=== PATIENT | male | born 1960 | race Caucasian/White ===

== ENCOUNTER → 2019-02-25 | Outpatient (CLI) | payer BC ==
[~2019-02-25] MED LIST: REGADENOSON 0.4 MG/5 ML SYRINGE IV ONE
--- NOTE | 2019-02-25 13:06 | EST ---
EXERCISE STRESS DATE OF SERVICE: 02/25/2019 AGE: 58 SEX: Male HT: 5'10" WT: 250 pounds PROTOCOL: Lexiscan Cardiolite STAGE: DURATION OF EXERCISE: HEART RATE REST: 69 BLOOD PRESSURE REST: 164/82 MAXIMUM HEART RATE ACHIEVED: 90 MAXIMUM BLOOD PRESSURE: 166/78 85% MPHR: 100% MPHR: METS: INDICATIONS: Short of breath. CLINICAL INFORMATION: Lexiscan nuclear study was performed. Peak heart rate of 90 was achieved. Maximum blood pressure of 166/78 mmHg was noted. Resting EKG shows a normal sinus rhythm with normal NJ interval and QRS duration and normal ST-T waves. No ST-segment depression suggestive of ischemia is noted. The results of the nuclear study will follow. MMISRAL / IJN: [id number] /
--- NOTE | 2019-02-25 14:11 | NM ---
EXAMINATION TYPE: NM stress lexiscan cardiolite DATE OF EXAM: 02/25/2019 COMPARISON: NONE HISTORY: Hypertension TECHNIQUE: After the intravenous administration of 10 mCi Tc 99m Sestamibi - Cardiolite resting SPEC T images acquired 50 minutes post injection. The patient received 0.4mg Lexiscan, 25.7 mCi Tc 99m Sestamibi - Stress images obtained [address] injection FINDINGS: Review of stress and rest SPECT images demonstrates no distinct perfusion abnormality. Gated analysi s shows normal wall motion with an estimated left ventricular ejection fraction of 49 %. IMPRESSION: No scintigraphic evidence for reversible ischemia.
== END ==
LOC: RADNMMAIN 08:05
PROVIDERS: ATTEND Family Medicine
DX: I10 Essential (primary) hypertension (principal)
CPT/HCPCS: 93017; 78452; A9500; J2785

== ENCOUNTER → 2019-04-21 | Outpatient (CLI) | payer BC ==
[2019-04-21 08:32] LABS: African American GFR (CKD) >90 (>60 ml/min/1.73 sqM); Blood Urea Nitrogen 16 mg/dL (9-20)
--- NOTE | 2019-04-21 12:25 | XR ---
EXAMINATION TYPE: XR lumbar spine 2 or 3V DATE OF EXAM: 04/21/2019 CLINICAL HISTORY: Back pain TECHNIQUE: Frontal and lateral images of the lumbar spine are obtained. COMPARISON: 10/25/2013 FINDINGS: There are 5 lumbar type vertebral bodies identified. The lumbar spine shows satisfactory alignment without evidence of acute fracture or dislocation. Multilevel facet arthropathy is seen wit h intervertebral disc space narrowing and nearly bridging anterior osteophytes. Extensive atheroscler osis of the abdominal aorta. Degree of degenerative disc disease has advanced from the prior 2013. Ve rtebral body heights and disk space heights are within normal limits. The overlying soft tissue appe ars unremarkable. IMPRESSION: No acute fracture or malalignment is seen in the lumbar spine. Worsening now moderate mu ltilevel degenerative disc disease of the lumbar spine in comparison the prior 2013.
--- NOTE | 2019-04-21 19:44 | CT ---
EXAMINATION TYPE: CT lumbar spine w con DATE OF EXAM: 04/21/2019 COMPARISON: HISTORY: Low back pain CT DLP: 2200.3 mGycm CONTRAST: CT scan of the lumbar is performed with IV Contrast, patient injected with 100 mL of Isovue 300. TECHNIQUE: CT of the lumbar spine is performed on a spiral scan at 3 mm thick sections. Reconstructed images are performed in the coronal and sagittal planes. FINDINGS: T12-L1: No focal disc herniation or significant disc bulge is evident. No spinal canal stenosis or neural foraminal stenosis is present. L1-L2: Mild disc bulge is present with anterior thecal sac contact. No spinal canal stenosis or neura l foraminal stenosis is present. L2-L3: Facet hypertrophy is present with posterior lateral thecal sac compression. There is mild disc bulging with posterior longitudinal ligament calcification. This is contributing to the spinal canal stenosis through this level. Neural foramen are patent. L3-L4: Based disc bulge is present with mild anterior thecal sac compression. Facet hypertrophy has s ome posterior lateral thecal sac compression. Some canal narrowing is present to this level. There is moderate left foraminal narrowing. L4-L5: Mild disc bulge is present with mild anterior thecal sac contact. Marked facet hypertrophy has significant posterior lateral thecal sac compression contributing to spinal canal stenosis through t his level. Bilateral foraminal stenosis is present. L5-S1: Mild disc bulge has anterior thecal sac contact. No spinal canal stenosis or neural foraminal stenosis is present. Vertebral alignment appears normal. There may be some minimal retrolisthesis of L5 on S1. IMPRESSION: 1. Spinal canal stenosis predominantly due to facet hypertrophy present at L4-5 and to a lesser degre e L2-3. Some mild disc bulging at these levels contributes to the stenosis. 2. Multilevel mild disc bulges with anterior thecal sac contact. This has milder canal narrowing with out stenosis at L3-4. 3. Consider MRI without contrast for additional evaluation.
== END | disposition home or self-care (01) ==
LOC: RADCTMAIN 07:52
PROVIDERS: ATTEND Family Medicine
DX: M48.061 Spinal stenosis, lumbar region without neurogenic claudication (principal); M51.16 Intervertebral disc disorders with radiculopathy, lumbar region
CPT/HCPCS: 82565; 84520; 72100; 72132; 36415; Q9967

== ENCOUNTER → 2020-10-17 | Outpatient (CLI) | payer BC ==
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
[2020-10-17 11:52] VITALS: BP 169/98; PULSE 77; RESP 18; TEMP 98.7
== END | disposition home or self-care (01) ==
LOC: PNWHC3 10:55
PROVIDERS: ATTEND Anesthesiology
DX: M47.26 Other spondylosis with radiculopathy, lumbar region (principal); E11.9 Type 2 diabetes mellitus without complications; M48.061 Spinal stenosis, lumbar region without neurogenic claudication; E66.9 Obesity, unspecified; F17.200 Nicotine dependence, unspecified, uncomplicated; Z88.5 Allergy status to narcotic agent; Z88.8 Allergy status to other drugs, medicaments and biological substances; Z79.84 Long term (current) use of oral hypoglycemic drugs; Z79.899 Other long term (current) drug therapy; Z79.891 Long term (current) use of opiate analgesic
CPT/HCPCS: 99211

== ENCOUNTER → 2020-10-22 | Outpatient (CLI) | payer BC ==
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
== END | disposition home or self-care (01) ==
CPT/HCPCS: 99211

== ENCOUNTER → 2020-11-05 | Outpatient (CLI) | payer BC ==
[2020-11-05 09:53] LABS: HCT 54.5 % (39.0-53.0); Hypochromasia Slight; MCH 29.8 pg (25.0-35.0); MCHC 31.3 g/dL (31.0-37.0); MCV 95.4 fL (80.0-100.0); Mean Platelet Volume 7.8; Platelet Count 178 k/uL (150-450); RBC 5.71 m/uL (4.30-5.90); RDW 13.6 % (11.5-15.5); WBC 10.4 k/uL (3.8-10.6)
[2020-11-05 16:31] LABS: African American GFR (CKD) 106.5 (60.0-200.0); Albumin 4.6 g/dL (3.80-4.90); Anion Gap 12.6 mmol/L (4.00-12.00); BUN/Creat Ratio 16.67 Ratio (12.00-20.00); Calcium 8.9 mg/dL (8.7-10.3); Carbon Dioxide 26.4 mmol/L (21.6-31.8); Globulin 2.3 g/dL (1.6-3.3); Non-African American GFR(CKD) 91.9 (60.0-200.0); Potassium 4.3 mmol/L (3.5-5.5); Total Bilirubin 1.1 mg/dL (0.3-1.2); Total Protein 6.9 g/dL (6.2-8.2)
[2020-11-05 16:40] LABS: Folate, Serum 9.2 ng/mL
[2020-11-05 17:59] LABS: Hemoglobin A1C 7.1 % (4.0-6.0)
== END | disposition home or self-care (01) ==
LOC: LABWHC1 08:53
PROVIDERS: ATTEND Surgery
DX: E55.9 Vitamin D deficiency, unspecified (principal); E88.81 Metabolic syndrome and other insulin resistance; E66.01 Morbid (severe) obesity due to excess calories
CPT/HCPCS: 36415; 80053; 82306; 82607; 82746; 83036; 84425; 85027; 93005

== ENCOUNTER 2020-11-09 12:02 | Day surgery (SDC) | payer BC ==
[2020-11-07 15:42] VITALS: BMI 34.2
[~2020-11-09 12:02] MED LIST changes: +LACTATED RINGERS 1,000 ML IV SCH; -REGADENOSON 0.4 MG/5 ML SYRINGE IV ONE
[2020-11-09] MEDS ORDERED: LIDOCAINE 1% (10MG/ML) FOR IV START INTRADERMA ONE (12:43)
[2020-11-09 12:53] LABS: Glucose,Whole Blood 99 mg/dL (75-99)
[2020-11-09 12:56] VITALS: TEMP 97.1
[2020-11-09] MEDS ORDERED: MIDAZOLAM 2 MG/2 ML VIAL ONE (13:04)
[2020-11-09] MEDS ORDERED: IOPAMIDOL M200 10 ML VIAL ONE (13:04)
[2020-11-09] MEDS ORDERED: LIDOCAINE 1% INJ 10MG/ML (20 ML MDV) ONE (13:04)
[2020-11-09] MEDS ORDERED: methylPREDNISolone ACETATE 40 MG/ML 1 ML VIAL ONE (13:04)
[2020-11-09] MEDS ORDERED: fentaNYL (PF) 50 MCG/ML 2 ML AMP ONE (13:04)
--- NOTE | 2020-11-09 13:37 | P.PCN ---
Date of Procedure: 11/09/20 Procedure(s) Performed: PREOPERATIVE DIAGNOSIS: 1-Lumbar radiculopathy. 2-Lumbar spinal stenosis. 3-Lumbar spondylosis with lumbar facet arthropathy POSTOPERATIVE DIAGNOSIS: same as preoperative diagnosis . PROCEDURE: 1. Caudal epidural steroid injection under fluoroscopic guidance. (Fluoroscopy images available in the radiology department ) 2. Caudal epidurogram (Attempted lumbar epidural steroid injection at L4 5, and L5-S1, left successful when the procedure was converted to caudal epidural steroid injections ) ANESTHESIA: Local with 1% lidocaine; 5ml for subcutaneous infiltrations and IV versed 2 mg ,and fentanyl 100 mcg EBL: None. PROCEDURE INDICATION: The patient with neuropathic pain radiating distally returns for caudal epidural steroid injection. PROCEDURE DESCRIPTION: The patient was seen and identified in the preoperative area. Risks, benefits, complications, and alternatives were discussed with the patient. The patient agreed to proceed with the procedure and signed the consent. IV was started, and vital signs were stable. Patient was taken to the OR and time out was completed. The patient was placed in the prone position on procedure table and a pillow was placed under the abdomen to reduce lumbar lordosis. The lumbosacral area was prepped and draped in the usual sterile fashion. Critical pause was taken. Vital signs were closely monitored during the procedure. multiple attempts done to access the L4 5 level interlaminar space was not successful, using 18-gauge 6 inch Tuohy needle, I was not able to access the epidural space, at L4 5 or L5-S1 levels, then the procedure was converted to caudal epidural steroid injection Using lateral fluoroscopy the anterior-posterior plates of the sacrum were identified and the skin and deeper tissues corresponding into sacrococcygeal ligament were anesthetized using approximately 3 mL of 1% lidocaine. Then under fluoroscopy, a 3-1/2-inch 20-gauge Tuohy epidural needle was guided through the sacrococcygeal ligament, and into the epidural space. After negative aspiration, a 2 mL of Isovue 200 contrast dye was injected with excellent epidurogram. Again after negative aspiration for CSF, blood, and with no paresthesias, then Depo-Medrol 40mg, 2ml of 1% preservative free Lidocaine with 6 ml of preservative free normal saline(total of 10ml)solution was injected with washout of epidurogram. Needle was withdrawn intact. Skin was cleansed, and bandage was applied. COMPLICATIONS: None DISPOSITION / PLANS: The patient was placed in a supine position and transferred to the recovery area in a stable condition for observation and was discharged from the recovery room after meeting discharge criteria. Home discharge instructions given to the patient by the staff. The patient was reexamined prior to discharge. The patient will schedule a follow up in the clinic in 2-4 weeks.
[2020-11-09] MEDS ORDERED: IV FLUID CONTINUATION 550 ML IV ONE (13:40)
--- NOTE | 2020-11-09 13:43 | FL ---
EXAMINATION TYPE: FL guided pain mgmt statistic DATE OF EXAM: 11/09/2020 HISTORY: Pain 25sec fluoro time,2 images scanned
[2020-11-09 14:06] VITALS: BP 161/71; PULSE 67; RESP 20
== END 2020-11-09 14:30 | disposition home or self-care (01) ==
LOC: ORPAIN 12:02
PROVIDERS: ATTEND Specialist
DX: M47.26 Other spondylosis with radiculopathy, lumbar region (principal); M48.061 Spinal stenosis, lumbar region without neurogenic claudication; M51.16 Intervertebral disc disorders with radiculopathy, lumbar region; E11.9 Type 2 diabetes mellitus without complications; Z79.82 Long term (current) use of aspirin
CPT/HCPCS: 62323; J2250; J1030; J2001; J3010; Q9966; 99152

== ENCOUNTER 2020-11-22 06:49 | Day surgery (SDC) | payer BC ==
[2020-11-20 10:16] VITALS: BMI 49.4
[2020-11-22 07:35] VITALS: TEMP 98.7
[2020-11-22 07:50] LABS: Glucose,Whole Blood 128 mg/dL (75-99)
[2020-11-22] MEDS ORDERED: PROPOFOL 10 MG/ML 20 ML VIAL IV ONE (08:01)
[2020-11-22] MEDS ORDERED: LIDOCAINE 1% INJ 10MG/ML (20 ML MDV) ONE (08:01)
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
--- NOTE | 2020-11-22 08:20 | P.OP ---
Date of Procedure: 11/22/20 Preoperative Diagnosis: Morbid obesity, BMI 50 GERD Postoperative Diagnosis: Morbid obesity BMI 50 Mild antral gastritis Procedure(s) Performed: EGD Anesthesia: MAC Surgeon: Mayur Merida Pathology: other Condition: stable Disposition: PACU Description of Procedure: The patient's placed on the endoscopy table in the lateral he received IV sedation. The gastric scope was placed in the patient's oropharynx passed in the esophagus and stomach. Scope some placed in the pylorus. The first and second portion of duodenum appeared normal. The scope was then brought back the first and second portion duodenum appeared normal. In the antrum were some mild inflammation. A biopsies performed. Scope was retroflexed and the remainder stomach appeared normal. The GE junction was at 40 cm. There is no evidence of hiatal hernia. The distal esophagus appeared normal. The proximal esophagus appeared normal. Scope was then brought back and withdrawn from patient.
[2020-11-22 08:31] VITALS: BP 133/69; PULSE 71; RESP 20
== END 2020-11-22 08:56 | disposition home or self-care (01) ==
LOC: ORWHC2ENDO 06:49
PROVIDERS: ATTEND Surgery
DX: K31.9 Disease of stomach and duodenum, unspecified (principal); K21.9 Gastro-esophageal reflux disease without esophagitis; E66.01 Morbid (severe) obesity due to excess calories; Z68.43 Body mass index [BMI] 50.0-59.9, adult; E11.9 Type 2 diabetes mellitus without complications; E78.5 Hyperlipidemia, unspecified; I10 Essential (primary) hypertension; M19.90 Unspecified osteoarthritis, unspecified site; F17.210 Nicotine dependence, cigarettes, uncomplicated; Z87.01 Personal history of pneumonia (recurrent); N42.9 Disorder of prostate, unspecified; Z87.19 Personal history of other diseases of the digestive system; Z98.890 Other specified postprocedural states; Q44.7 Other congenital malformations of liver; Z87.898 Personal history of other specified conditions; Z80.42 Family history of malignant neoplasm of prostate; Z80.49 Family history of malignant neoplasm of other genital organs; Z79.84 Long term (current) use of oral hypoglycemic drugs; Z79.1 Long term (current) use of non-steroidal anti-inflammatories (NSAID); Z79.82 Long term (current) use of aspirin; Z79.899 Other long term (current) drug therapy; Z88.8 Allergy status to other drugs, medicaments and biological substances
CPT/HCPCS: 88305; 43239; J2001; J2704

== ENCOUNTER → 2020-11-26 | Outpatient (CLI) | payer BC ==
[2020-11-26 13:13] VITALS: BMI 51.2
== END | disposition home or self-care (01) ==
LOC: BARWHC3 08:48
PROVIDERS: ATTEND Surgery
DX: E66.01 Morbid (severe) obesity due to excess calories (principal); Z71.3 Dietary counseling and surveillance; Z68.43 Body mass index [BMI] 50.0-59.9, adult
CPT/HCPCS: 97804

== ENCOUNTER → 2020-12-10 | Outpatient (CLI) | payer BC ==
[2020-12-10 13:37] VITALS: BP 170/105; PULSE 93; RESP 18; TEMP 99; BMI 50.8
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
== END ==
LOC: BARWHC3 13:02
PROVIDERS: ATTEND Surgery
DX: E66.01 Morbid (severe) obesity due to excess calories (principal); E11.9 Type 2 diabetes mellitus without complications; M19.90 Unspecified osteoarthritis, unspecified site; I10 Essential (primary) hypertension; F17.210 Nicotine dependence, cigarettes, uncomplicated; Z68.43 Body mass index [BMI] 50.0-59.9, adult; Z98.84 Bariatric surgery status; Z79.82 Long term (current) use of aspirin; Z79.4 Long term (current) use of insulin
CPT/HCPCS: 99211

== ENCOUNTER → 2020-12-10 | Outpatient (CLI) | payer BC ==
[2020-12-10 14:41] LABS: Basophils # (A) 0.1 k/uL (0-0.2); Basophils % (A) 1 %; Eosinophils # (A) 0.3 k/uL (0-0.7); Eosinophils % (A) 3 %; HGB 16.6 gm/dL (13.0-17.5); Lymphocytes # (A) 2.4 k/uL (1.0-4.8); Lymphocytes % (A) 20 %; MCH 30.3 pg (25.0-35.0); MCHC 31.9 g/dL (31.0-37.0); Mean Platelet Volume 7.6; Monocytes # (A) 0.8 k/uL (0-1.0); Monocytes % (A) 6 %; Neutrophils # (A) 8.4 k/uL (1.3-7.7); Neutrophils % (A) 70 %; Platelet Count 184 k/uL (150-450); RBC 5.48 m/uL (4.30-5.90); RDW 13.8 % (11.5-15.5); WBC 12.1 k/uL (3.8-10.6)
[2020-12-10 14:48] LABS: ALT 28 U/L (4-49); AST 29 U/L (17-59); African American GFR (CKD) >90 (>60 ml/min/1.73 sqM); Albumin 4.3 g/dL (3.5-5.0); Alkaline Phosphatase 91 U/L (38-126); Anion Gap 9 mmol/L; Blood Urea Nitrogen 12 mg/dL (9-20); Calcium 9.3 mg/dL (8.4-10.2); Carbon Dioxide 32 mmol/L (22-30); Chloride 103 mmol/L (98-107); Glucose 106 mg/dL (74-99); Non-African American GFR(CKD) 90 (>60 ml/min/1.73 sqM); Sodium 144 mmol/L (137-145); Total Bilirubin 0.8 mg/dL (0.2-1.3); Total Protein 7.4 g/dL (6.3-8.2)
== END | disposition home or self-care (01) ==
LOC: LABPAT 13:46
PROVIDERS: ATTEND Surgery
DX: Z01.812 Encounter for preprocedural laboratory examination (principal)
CPT/HCPCS: 36415; 80053; 85025

== ENCOUNTER 2020-12-24 07:30 | Inpatient (IN) | payer BC, MEDICARE ==
[~2020-12-24 07:30] MED LIST changes: +DEXAMETHASONE SOD PHOSPHATE 4 MG/ML 1 ML VIAL IV ONE; +ENOXAPARIN 40 MG/0.4 ML SYRINGE SQ PRN; -LACTATED RINGERS 1,000 ML IV SCH; +MIDAZOLAM 2 MG/2 ML VIAL IV PRN; +ONDANSETRON 4 MG/2 ML VIAL IVP ONE; +SCOPOLAMINE 1.5MG/72HR PATCH TRANSDERM ONE; +ceFAZolin 3 GM in SODIUM CHLORIDE 0.9% 100 ML IVPB PRN
[2020-12-24] MEDS: LACTATED RINGERS 1,000 ML IV SCH (10:06)
[2020-12-24 10:40] LABS: Glucose,Whole Blood 92 mg/dL (75-99)
[2020-12-24] MEDS ORDERED: MIDAZOLAM 2 MG/2 ML VIAL IVP ONE (11:00)
[2020-12-24] MEDS ORDERED: fentaNYL (PF) 50 MCG/ML 2 ML AMP IVP ONE (11:00)
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
[2020-12-24] MEDS ORDERED: NEOSTIGMINE 1 MG/ML 10 ML VIAL ONE (12:17)
[2020-12-24] MEDS ORDERED: PHENYLEPHRINE-0.9% NACL SYG 1,000 MCG/10 ML SYRINGE ONE (12:17)
[2020-12-24] MEDS ORDERED: KETOROLAC 15 MG/ML 1 ML VIAL ONE (12:17)
[2020-12-24] MEDS ORDERED: PROPOFOL 10 MG/ML 20 ML VIAL IV ONE (12:17)
[2020-12-24] MEDS ORDERED: SUCCINYLCHOLINE CHLORIDE VIAL 200 MG/10 ML VIAL IV ONE (12:17)
[2020-12-24] MEDS ORDERED: GLYCOPYRROLATE 0.2 MG/ML 2 ML VIAL ONE (12:17)
[2020-12-24] MEDS ORDERED: LIDOCAINE 1% INJ 10MG/ML (20 ML MDV) ONE (12:17)
[2020-12-24] MEDS ORDERED: KETAMINE 10 MG/ML 20 ML VIAL ONE (12:17)
[2020-12-24] MEDS ORDERED: ROCURONIUM 10 MG/ML (5 ML VIAL) IV ONE (12:17)
[2020-12-24] MEDS ORDERED: SODIUM CHLORIDE 0.9% (PF) 10 ML VIAL ONE (12:17)
[2020-12-24] MEDS ORDERED: diphenhydrAMINE 50 MG/ML 1 ML VIAL ONE (12:17)
[2020-12-24] MEDS ORDERED: ACETAMINOPHEN IV (For NPO) 1,000 MG/100 ML VIAL ONE (12:17)
[2020-12-24] MEDS ORDERED: ROPIVACAINE 5 MG/ML 30 ML VIAL ONE (12:17)
[2020-12-24] MEDS ORDERED: MIDAZOLAM 2 MG/2 ML VIAL ONE (12:17)
--- NOTE | 2020-12-24 12:28 | P.ANPRN ---
Procedure Note - Anesthesia - Nerve Block Performed Bilateral Erector Spinae Single Time Out Performed: Yes Date of Procedure: 12/24/20 Procedure Start Time: 10:59 Procedure Stop Time: 11:07 Location of Patient: PreOp Indication: Requested by Surgeon Specifically requested for management of pain by DrDoroteo: Mayur Merida Sedation Type: Sedate with meaningful contact maintained Preparation: Sterile Prep Position: Prone Needle Types: Pajunk Needle Gauge: 21 Ultrasound used to visualize needle placement: Yes Ultrasound used to observe medication spread: Yes Injectate: Other (see comment) (ropivacaine 0.25% 30 ml plus Dexamethasone 4 mg per side) Blood Aspirated: No Pain Paresthesia on Injection Noted: No Resistance on Injection: Normal Image Stored and Saved: Yes Events: Uneventful and Well Tolerated
[2020-12-24] MEDS ORDERED: BUPIVACAIN-EPI 0.5%-1:200,000 30 ML VIAL SQ ONE (13:15)
[2020-12-24] MEDS ORDERED: LACTATED RINGERS 1,000 ML IV ONE (13:30)
[2020-12-24] MEDS ORDERED: SIMETHICONE 40 MG/0.6 ML DROPS 2,000 MG/30 ML BOTTLE PO PRN (14:31)
[2020-12-24] MEDS ORDERED: diphenhydrAMINE 50 MG/ML 1 ML VIAL IVP PRN (14:31)
[2020-12-24] MEDS ORDERED: ONDANSETRON 4 MG/2 ML VIAL IVP PRN (14:31)
[2020-12-24] MEDS ORDERED: HYOSCYAMINE ORAL DROPS 1.875 MG/15 ML BOTTLE PO PRN (14:31)
[2020-12-24] MEDS ORDERED: NALOXONE 0.4 MG/ML 1 ML VIAL IV PRN (14:31)
[2020-12-24 14:35] LABS: Glucose,Whole Blood 164 mg/dL (75-99)
[2020-12-24] MEDS: HYDROmorphone 0.5 MG/0.5 ML SYRINGE IVP PRN ×3 (15:00→16:14)
[2020-12-24] MEDS ORDERED: diphenhydrAMINE 50 MG/ML 1 ML VIAL IVP ONE (15:03)
[2020-12-24] MEDS ORDERED: KETOROLAC 15 MG/ML 1 ML VIAL IVP ONE (15:29)
--- NOTE | 2020-12-24 15:53 | P.OP ---
Date of Procedure: 12/24/20 Preoperative Diagnosis: morbid obesity, BMI 46 Postoperative Diagnosis: morbid obesity, BMI 46 Extensive intraperitoneal adhesions Incisional hernia Procedure(s) Performed: laparoscopic lysis of adhesion. Sleeve gastrectomy Repair of incisional hernia Anesthesia: RICHARD Surgeon: Mayur Merida Estimated Blood Loss (ml): 100 Pathology: other (gastric sleeve) Condition: stable Disposition: PACU Description of Procedure: patient's placed on the operative table in the supine position. He received general anesthesia. His abdomen was prepped and draped in usual sterile fashion. The patient had been placed in dorsal lithotomy position. The patient had a large midline scar. There is evidence of incisional hernia. Using a Veress needle in the left upper quadrant peritoneal cavity was entered and then abdomen was insufflated. After adequate insufflation a 5 mm laparoscopic trocar is placed in the left lateral position under direct visualization. The Cavity was entered in the abdomen was insufflated. There were extensive adhesions noted along the midline scar. A second 5 mm trocar was placed in the left epigastric position. Attempts were made to lyse adhesions however this was very difficult. At this point decided to convert the procedure to an open procedure. The trochars withdrawn. The skin was incised in the midline. The area was entered through the midline. There was a small incisional hernia located along the lower portion of the scar. Approximately 30 minutes operative time used to lyse adhesions. And then the stomach was mobilized. The greater curvature stomach was then the mobilized by dividing the omentum off of the greater curvature. The patient had a previous colectomy with there was significant scarring left upper quadrant. The stomach was dissected away from from the lateral abdominal wall. Once it was fully mobilized. The 40-Indonesian bougie dilator was placed in the patient's stomach via the oropharynx and into the esophagus and stomach. And then the sleeve gastrectomy was performed using the GI stapler. The abdomen was irrigated there is no bleeding seen. The stomach was insufflated with methylene blue normal saline. No extravasation was seen. The fascia was closed with looped #1 PDS suture. The fascia of the incisional hernia was repaired using fascial closure. Skin was closed gabriel. Patient top she will was sent to recovery room in stable condition.
[2020-12-24] MEDS ORDERED: IPRATROPIUM-ALBUTEROL 3 ML NEB INHALATION PRN (16:50)
[2020-12-24] MEDS: ALBUTEROL NEBULIZED 2.5 MG/3 ML INHALATION SCH ×2 (18:00→20:59)
[2020-12-24] MEDS: KETOROLAC 15 MG/ML 1 ML VIAL IVP SCH ×2 (18:02→23:07)
[2020-12-24] MEDS: NICOTINE 14MG/24HR PATCH TRANSDERM SCH (18:48)
--- NOTE | 2020-12-24 19:49 | CONS ---
CONSULTATION This is a 60-year-old white male, status post lysis of adhesions, gastric sleeve repair, with a BMI of 46, morbidly obese. He has a history of diabetes mellitus, hypertension acceleration, dyslipidemia, osteoarthritis, chronic nicotine addiction, COPD, history of some spinal stenosis, history of pancreatitis, past surgical history of orthopedic surgery ORIF of upper left arm, surgery for compartment syndrome, lower left arm, tear of the diaphragm, chest tube for pneumonia. He is a current everyday smoker. FAMILY HISTORY: Father with cancer of the prostate. Mother with cancer of the uterus. MEDICATIONS: 1. Lasix 40 daily. 2. Potassium chloride 20 mEq daily. 3. Zoloft 100 daily. 4. Norvasc 10 mg daily. 5. Tenormin 100 b.i.d. 6. Zestril for 20 mg b.i.d. 7. Metformin 250 daily. 8. Aspirin 81 daily. 9. Lipitor 20 daily. 10.Flexeril 5 mg p.o. t.i.d. 11.Motrin 800 daily. 12.Flomax 0.4 mg daily. 13.Tramadol 50 mg daily. 14.Vitamin D2 50,000 units once a week. 15.Meloxicam 7.5 b.i.d. 16.Tolterodine 4 mg daily. 17.Trulicity 1.5 once a week. 18.Calcium citrate 250 mg daily. ALLERGIES: ZYBAN. PHYSICAL EXAMINATION: Temperature is 97.3, pulse 60s to 70s, respiratory rate 16 to 18, blood pressure 150/73, oxygen saturation 92%. GENERAL APPEARANCE: Well-developed, well-nourished. No acute distress. HEENT: Pupils equal, round, reactive. Lungs are clear. GI: Soft, distended. Obesity. As mentioned, he is status post gastric sleeve. ASSESSMENT: 1. Hypertension. 2. Diabetes. 3. Morbid obesity. Continue home medicines. Will monitor his oral intake and possibly restart blood pressure medicines, depending on his vital signs. 1. History of chronic obstructive pulmonary disease. We may have to use updraft treatments postoperatively on him and monitor his breathing. MMODL / IJN: [id number] /
[2020-12-24] MEDS: atenoloL 50 MG TAB PO SCH (20:32)
[2020-12-24] MEDS: ATORVASTATIN 20 MG TAB PO SCH (20:32)
[2020-12-24] MEDS: HYDROmorphone 1 MG/ML 1 ML SYRINGE IVP PRN (20:37)
[2020-12-24 20:41] LABS: Glucose,Whole Blood 123 mg/dL (75-99)
[2020-12-24] MEDS: 0.9% NACL WITH KCL 20 MEQ/L 1,000 ML IV SCH (21:17)
[2020-12-25] MEDS: 0.9% NACL WITH KCL 20 MEQ/L 1,000 ML IV SCH ×2 (00:38→03:44)
[2020-12-25] MEDS: HYDROmorphone 1 MG/ML 1 ML SYRINGE IVP PRN ×4 (04:54→22:06)
[2020-12-25] MEDS: LACTATED RINGERS 1,000 ML IV SCH (05:45)
[2020-12-25] MEDS: KETOROLAC 15 MG/ML 1 ML VIAL IVP SCH ×4 (05:46→23:33)
[2020-12-25 06:54] LABS: Glucose,Whole Blood 107 mg/dL (75-99)
[2020-12-25] MEDS ORDERED: 1: MVI, ADULT NO.4 WITH VIT K 10 ML, THIAMINE 100 MG, FOLIC ACID 1 MG, POTASSIUM CHLORID IV SCH ×6 (08:00)
[2020-12-25] MEDS: ALBUTEROL NEBULIZED 2.5 MG/3 ML INHALATION SCH ×4 (09:18→20:19)
[2020-12-25] MEDS: atenoloL 50 MG TAB PO SCH ×2 (09:27→20:26)
[2020-12-25] MEDS: NICOTINE 14MG/24HR PATCH TRANSDERM SCH (09:28)
[2020-12-25] MEDS: ENOXAPARIN 40 MG/0.4 ML SYRINGE SQ SCH (09:28)
[2020-12-25] MEDS: PANTOPRAZOLE 40 MG/10 ML VIAL IV SCH ×2 (09:28→09:36)
[2020-12-25 10:56] LABS: Basophils # (A) 0.02 X 10*3/uL (0.00-0.10); Basophils % (A) 0.1 %; Eosinophils # (A) 0.01 X 10*3/uL (0.04-0.35); Eosinophils % (A) 0.1 %; HGB 14.9 g/dL (13.0-17.0); Lymphocytes # (A) 1.24 X 10*3/uL (0.90-5.00); Lymphocytes % (A) 7.7 %; MCH 30.1 pg (27.0-32.0); MCHC 30.4 g/dL (32.0-37.0); Mean Platelet Volume 11.2 fL (9.5-12.2); Monocytes # (A) 1.36 X 10*3/uL (0.20-1.00); Monocytes % (A) 8.4 %; Neutrophils # (A) 13.46 X 10*3/uL (1.80-7.70); Neutrophils % (A) 83.2 %; Platelet Count 209 X 10*3/uL (140-440); RBC 4.95 X 10*6/uL (4.40-5.60); RDW 14.1 % (11.5-14.5); WBC 16.17 X 10*3/uL (4.50-10.00)
[2020-12-25 11:29] LABS: African American GFR (CKD) 106.5 (60.0-200.0); Anion Gap 8.7 mmol/L (4.00-12.00); Calcium 8.6 mg/dL (8.7-10.3); Carbon Dioxide 24.3 mmol/L (21.6-31.8); Magnesium 1.9 mg/dL (1.5-2.4); Non-African American GFR(CKD) 91.9 (60.0-200.0); Phosphorus 4.1 mg/dL (2.4-5.1); Potassium 5.5 mmol/L (3.5-5.5)
[2020-12-25 11:35] LABS: Glucose,Whole Blood 101 mg/dL (75-99)
--- NOTE | 2020-12-25 12:33 | FL ---
EXAMINATION TYPE: FL UGI DATE OF EXAM: 12/25/2020 COMPARISON: None HISTORY: Post gastric sleeve and LAP-BAND removal TECHNIQUE: Fluoroscopy time: 0.4 minutes Images: 41 A single contrast UGI study is performed. FINDINGS: Contrast passes from the distal esophagus through the gastric sleeve with mild hesitancy. N o extravasation of contrast is evident. No free air is noted during this examination. Overhead radiographs were obtained which are unremarkable. IMPRESSIONS: 1. Mild hesitancy through the gastric sleeve. No extravasation.
[2020-12-25] MEDS: TAMSULOSIN 0.4 MG CAP.ER.24H PO SCH (12:40)
--- NOTE | 2020-12-25 13:34 | P.PN ---
Subjective Progress Note Date: 12/25/20 CHIEF COMPLAINT: Morbid obesity HISTORY OF PRESENT ILLNESS: Patient is status post laparoscopic lysis of adhesions, sleep gastrectomy, repair of incisional hernia. Patient has been up and walking. He is currently on 6 L of oxygen. He was having nausea earlier but this has improved. He denies passing gas or bowel movement. There were concerns initially about some urinary retention however patient has been able to void his Flomax is being restarted. Nursing staff is checking postvoid residuals. Upper GI had shown mild hesitancy through gastric sleeve. No extravasation. Afebrile. WBC 16.17 Hgb 14.9 potassium is 5.5 creatinine 0.9 magnesium 1.9 PHYSICAL EXAM: VITAL SIGNS: Reviewed. GENERAL: Well-developed in no acute distress. HEENT: No sclera icterus. Extraocular movements grossly intact. Moist buccal mucosa. Head is atraumatic, normocephalic. ABDOMEN: Soft. Nondistended. Nontender. NEUROLOGIC: Alert and oriented. Cranial nerves II through XII grossly intact. ASSESSMENT: 1. Morbid obesity, BMI 46, extensive intraperitoneal adhesions, incisional hernia status post laparoscopic lysis of adhesions, sleeve gastrectomy and repair of incisional hernia PLAN: -Patient can start bariatric clear liquid diet -Encouraged patient to use incentive spirometer and to ambulate -We'll remove potassium from the multivitamin IV fluids due to potassium of 5.5 -Continue pain medication as needed -Add Flomax -Check bladder scans and monitor for any urinary retention -GI prophylaxis Protonix and DVT prophylaxis Lovenox Physician Legal Associate note has been reviewed by physician. Signing provider agrees with the documented findings, assessment, and plan of care. Objective - Vital Signs Vital signs: Vital Signs Temp 97.6 F 12/25/20 07:40 Pulse 68 12/25/20 12:35 Resp 18 12/25/20 07:40 BP 98/59 12/25/20 07:40 Pulse Ox 92 L 12/25/20 12:27 Intake & Output 12/24/20 12/25/20 12/25/20 18:59 06:59 18:59 Intake Total 800 10 Output Total 25 650 Balance 775 -640 Weight 142.1 kg Intake: IV 800 Oral 10 Output: Urine 650 Estimated Blood Loss 25 Other: # Voids 1 - Labs CBC & Chem 7: 12/25/20 06:30 12/25/20 06:30 Labs: Abnormal Lab Results - Last 24 Hours (Table) 12/24/20 12/24/20 12/25/20 Range/Units 14:32 20:40 06:30 WBC 16.17 H (4.50-10.00) X 10*3/uL MCV 99.0 H (80.0-97.0) fL MCHC 30.4 L (32.0-37.0) g/dL Immature Gran # 0.08 H (0.00-0.04) X 10*3/uL Neutrophils # 13.46 H (1.80-7.70) X 10*3/uL Monocytes # 1.36 H (0.20-1.00) X 10*3/uL Eosinophils # 0.01 L (0.04-0.35) X 10*3/uL POC Glucose (mg/dL) 164 H 123 H (75-99) mg/dL Calcium (8.7-10.3) mg/dL 12/25/20 12/25/20 12/25/20 Range/Units 06:30 06:52 11:30 WBC (4.50-10.00) X 10*3/uL MCV (80.0-97.0) fL MCHC (32.0-37.0) g/dL Immature Gran # (0.00-0.04) X 10*3/uL Neutrophils # (1.80-7.70) X 10*3/uL Monocytes # (0.20-1.00) X 10*3/uL Eosinophils # (0.04-0.35) X 10*3/uL POC Glucose (mg/dL) 107 H 101 H (75-99) mg/dL Calcium 8.6 L (8.7-10.3) mg/dL
[2020-12-25 13:48] VITALS: BMI 46.3
[2020-12-25] MEDS: 1: MVI, ADULT NO.4 WITH VIT K 10 ML, THIAMINE 100 MG, FOLIC ACID 1 MG in SODIUM CHLORIDE IV SCH ×4 (14:42)
[2020-12-25 16:43] LABS: Glucose,Whole Blood 98 mg/dL (75-99)
--- NOTE | 2020-12-25 19:42 | PN ---
PROGRESS NOTE This patient is status post open gastric sleeve. He is sitting up in a chair. He says he is breathing better. He is 92%, still on 6 L, temperature 98.4, pulse 70s to 80s, respiratory rate 16-18. CARDIOVASCULAR: S1, S2. LUNGS: Scattered rhonchi and wheeze. HEMATOLOGY: Negative Homans. GI: Incision apparently is intact. ASSESSMENT: 1. Hypertension. 2. Diabetes. 3. Asthma/chronic obstructive pulmonary disease. On 6 L currently. Try to wean his oxygen down. Ambulate him. Advanced his diet as tolerated. Prognosis is guarded. Continue current treatments. MMODL / IJN: [id number] /
[2020-12-25 20:15] LABS: Glucose,Whole Blood 92 mg/dL (75-99)
[2020-12-25] MEDS: ATORVASTATIN 20 MG TAB PO SCH (20:26)
[2020-12-26] MEDS: 1: MVI, ADULT NO.4 WITH VIT K 10 ML, THIAMINE 100 MG, FOLIC ACID 1 MG in SODIUM CHLORIDE IV SCH ×8 (01:01→10:54)
[2020-12-26] MEDS: HYDROmorphone 1 MG/ML 1 ML SYRINGE IVP PRN ×4 (03:18→19:37)
[2020-12-26] MEDS: KETOROLAC 15 MG/ML 1 ML VIAL IVP SCH ×2 (05:25→11:18)
[2020-12-26] MEDS: LACTATED RINGERS 1,000 ML IV SCH (05:29)
[2020-12-26 06:57] LABS: Glucose,Whole Blood 98 mg/dL (75-99)
[2020-12-26 08:16] LABS: Basophils # (A) 0.1 k/uL (0-0.2); Basophils % (A) 0 %; Eosinophils % (A) 0 %; HCT 44.2 % (39.0-53.0); HGB 13.7 gm/dL (13.0-17.5); Hypochromasia Moderate; Lymphocytes # (A) 1.8 k/uL (1.0-4.8); Lymphocytes % (A) 16 %; MCH 30.5 pg (25.0-35.0); MCV 98.3 fL (80.0-100.0); Mean Platelet Volume 8.1; Monocytes # (A) 0.7 k/uL (0-1.0); Monocytes % (A) 6 %; Neutrophils # (A) 8.5 k/uL (1.3-7.7); Neutrophils % (A) 76 %; Platelet Count 181 k/uL (150-450); RBC 4.49 m/uL (4.30-5.90); RDW 13.9 % (11.5-15.5); WBC 11.2 k/uL (3.8-10.6)
[2020-12-26 08:19] LABS: African American GFR (CKD) >90 (>60 ml/min/1.73 sqM); Anion Gap 4 mmol/L; Blood Urea Nitrogen 22 mg/dL (9-20); Calcium 8.5 mg/dL (8.4-10.2); Carbon Dioxide 33 mmol/L (22-30); Chloride 106 mmol/L (98-107); Glucose 111 mg/dL (74-99); Non-African American GFR(CKD) 88 (>60 ml/min/1.73 sqM); Potassium 4.8 mmol/L (3.5-5.1); Sodium 143 mmol/L (137-145)
[2020-12-26] MEDS: ENOXAPARIN 40 MG/0.4 ML SYRINGE SQ SCH (08:25)
[2020-12-26] MEDS: NICOTINE 14MG/24HR PATCH TRANSDERM SCH (08:26)
[2020-12-26] MEDS: atenoloL 50 MG TAB PO SCH ×2 (08:26→20:42)
[2020-12-26] MEDS: TAMSULOSIN 0.4 MG CAP.ER.24H PO SCH (08:26)
[2020-12-26] MEDS: PANTOPRAZOLE 40 MG/10 ML VIAL IV SCH (08:26)
[2020-12-26] MEDS: ALBUTEROL NEBULIZED 2.5 MG/3 ML INHALATION SCH ×4 (08:32→20:27)
[2020-12-26 09:14] LABS: Chol/HDL Ratio 3.52; LDL Cholesterol,Calculated 47.4 mg/dL (0.0-131.0); VLDL Calculation 20.6 mg/dL (5.00-40.00)
[2020-12-26 11:15] LABS: Hemoglobin A1C 6.7 % (4.0-6.0)
[2020-12-26] MEDS: HYDROcodone/APAP 15 ML SOLUTION PO PRN ×2 (11:21→17:20)
[2020-12-26 11:51] LABS: Glucose,Whole Blood 105 mg/dL (75-99)
--- NOTE | 2020-12-26 12:31 | PN ---
PROGRESS NOTE A 60-year-old white male, on 4 L of high-flow nasal cannula. Pulse is 60s, respiratory 16 to 18. CARDIOVASCULAR: S1, S2. LUNGS: Decreased breath sounds x4. GI: Distended due to obesity. EXTREMITIES: No edema. ASSESSMENT: 1. Chronic obstructive pulmonary disease exacerbation. 2. Status post gastric sleeve open procedure. 3. Hypertension. 4. Diabetes. We will try to wean him off his oxygen to day for COPD. He had extensive intraperitoneal adhesions, laparoscopic lysis of adhesions, sleeve gastrectomy. GI prophylaxis. Possible discharge home soon depending on if we can wean him off his oxygen or if we have to send him home on oxygen. MMODL / IJN: [id number] /
--- NOTE | 2020-12-26 14:14 | P.PN ---
Subjective Progress Note Date: 12/26/20 CHIEF COMPLAINT: Morbid obesity HISTORY OF PRESENT ILLNESS: Patient is status post laparoscopic lysis of adhesions, sleep gastrectomy, repair of incisional hernia. Patient has been up and walking. He is currently on 4 L of oxygen satting at 93%. Patient is complaining of pain today. He's had some nausea but it is improving. He denies any gas or bowel movement. He has been up and ambulating. He is urinating without difficulty. Afebrile. Down from 16.17-11.2 potassium 4.8 creatinine 0.94 BUN 22 A1c 6.7 PHYSICAL EXAM: VITAL SIGNS: Reviewed. GENERAL: Well-developed in no acute distress. HEENT: No sclera icterus. Extraocular movements grossly intact. Moist buccal mucosa. Head is atraumatic, normocephalic. ABDOMEN: Soft. Nondistended. Incision dressing clean dry and intact NEUROLOGIC: Alert and oriented. Cranial nerves II through XII grossly intact. ASSESSMENT: 1. Morbid obesity, BMI 46, extensive intraperitoneal adhesions, incisional hernia status post laparoscopic lysis of adhesions, sleeve gastrectomy and repair of incisional hernia PLAN: -Continue bariatric clear liquid diet -Encouraged patient to use incentive spirometer and to ambulate -Add liquid [place] for pain control -GI prophylaxis Protonix and DVT prophylaxis Lovenox Physician Education Site Manager note has been reviewed by physician. Signing provider agrees with the documented findings, assessment, and plan of care. Objective - Vital Signs Vital signs: Vital Signs Temp 98.7 F 12/26/20 07:00 Pulse 70 12/26/20 11:34 Resp 16 12/26/20 11:34 BP 124/74 12/26/20 07:00 Pulse Ox 93 L 12/26/20 08:28 Intake & Output 12/25/20 12/26/20 12/26/20 18:59 06:59 18:59 Intake Total 1311.2 Output Total 200 Balance -200 1311.2 Weight 142.1 kg 142.1 kg Intake: Intake, IV Titration 1011.2 Amount Mvi, Adult No.4 with Vit 1011.2 K 10 ml Thiamine 100 mg Folic Acid 1 mg In Sodium Chloride 0.9% 1,000 ml @ 100 mls/hr IV .BY DURATION JALEN Rx#: [id number] Oral 300 Output: Urine 200 Other: # Voids 2 - Labs CBC & Chem 7: 12/26/20 06:56 12/26/20 06:56 Labs: Abnormal Lab Results - Last 24 Hours (Table) 12/26/20 12/26/20 12/26/20 Range/Units 06:06 06:06 06:56 WBC 11.2 H (3.8-10.6) k/uL Neutrophils # 8.5 H (1.3-7.7) k/uL Carbon Dioxide (22-30) mmol/L BUN (9-20) mg/dL Glucose (74-99) mg/dL POC Glucose (mg/dL) (75-99) mg/dL Hemoglobin A1c 6.7 H (4.0-6.0) % HDL Cholesterol 27.0 L (40.0-60.0) mg/dL 12/26/20 12/26/20 Range/Units 06:56 11:50 WBC (3.8-10.6) k/uL Neutrophils # (1.3-7.7) k/uL Carbon Dioxide 33 H (22-30) mmol/L BUN 22 H (9-20) mg/dL Glucose 111 H (74-99) mg/dL POC Glucose (mg/dL) 105 H (75-99) mg/dL Hemoglobin A1c (4.0-6.0) % HDL Cholesterol (40.0-60.0) mg/dL
[2020-12-26 17:14] LABS: Glucose,Whole Blood 97 mg/dL (75-99)
--- NOTE | 2020-12-26 18:06 | XR ---
EXAMINATION TYPE: XR chest 2V DATE OF EXAM: 12/26/2020 COMPARISON: 12/15/2014 HISTORY: Short of breath TECHNIQUE: 2 views FINDINGS: There is blunting of the costophrenic angles. There is some pulmonary vascular congestion a nd lower lobe pulmonary infiltrates and atelectasis. The bony thorax is intact. IMPRESSION: There is development compared to old exam of bilateral pulmonary infiltrates and atelecta sis and pulmonary congestion with pleural fluid. This could be combined congestive heart failure and pneumonia.
[2020-12-26 20:11] LABS: Glucose,Whole Blood 107 mg/dL (75-99)
[2020-12-26] MEDS: ATORVASTATIN 20 MG TAB PO SCH (20:42)
[2020-12-27] MEDS: HYDROmorphone 1 MG/ML 1 ML SYRINGE IVP PRN ×3 (00:50→10:33)
[2020-12-27] MEDS: 1: MVI, ADULT NO.4 WITH VIT K 10 ML, THIAMINE 100 MG, FOLIC ACID 1 MG in SODIUM CHLORIDE IV SCH ×4 (00:52)
[2020-12-27] MEDS: LACTATED RINGERS 1,000 ML IV SCH (07:09)
[2020-12-27 07:12] LABS: Glucose,Whole Blood 104 mg/dL (75-99)
[2020-12-27] MEDS: ALBUTEROL NEBULIZED 2.5 MG/3 ML INHALATION SCH ×3 (07:37→16:40)
[2020-12-27] MEDS: TAMSULOSIN 0.4 MG CAP.ER.24H PO SCH (08:36)
[2020-12-27] MEDS: NICOTINE 14MG/24HR PATCH TRANSDERM SCH (08:36)
[2020-12-27] MEDS: atenoloL 50 MG TAB PO SCH (08:36)
[2020-12-27] MEDS: ENOXAPARIN 40 MG/0.4 ML SYRINGE SQ SCH (08:36)
[2020-12-27] MEDS: HYDROcodone/APAP 15 ML SOLUTION PO PRN (08:45)
[2020-12-27 09:54] LABS: Basophils % (A) 0 %; Eosinophils # (A) 0.2 k/uL (0-0.7); Eosinophils % (A) 1 %; HCT 44.4 % (39.0-53.0); HGB 13.9 gm/dL (13.0-17.5); Hypochromasia Moderate; Lymphocytes # (A) 1.8 k/uL (1.0-4.8); Lymphocytes % (A) 16 %; MCH 30.2 pg (25.0-35.0); MCHC 31.3 g/dL (31.0-37.0); MCV 96.4 fL (80.0-100.0); Mean Platelet Volume 7.8; Monocytes # (A) 0.7 k/uL (0-1.0); Monocytes % (A) 6 %; Neutrophils # (A) 8.5 k/uL (1.3-7.7); Neutrophils % (A) 75 %; Platelet Count 173 k/uL (150-450); RBC 4.61 m/uL (4.30-5.90); RDW 13.9 % (11.5-15.5); WBC 11.2 k/uL (3.8-10.6)
[2020-12-27 10:01] LABS: African American GFR (CKD) >90 (>60 ml/min/1.73 sqM); Anion Gap 7 mmol/L; Blood Urea Nitrogen 14 mg/dL (9-20); Calcium 8.7 mg/dL (8.4-10.2); Carbon Dioxide 29 mmol/L (22-30); Chloride 106 mmol/L (98-107); Glucose 109 mg/dL (74-99); Non-African American GFR(CKD) >90 (>60 ml/min/1.73 sqM); Potassium 4.9 mmol/L (3.5-5.1); Sodium 142 mmol/L (137-145)
[2020-12-27 10:14] VITALS: BP 137/64; RESP 16
--- NOTE | 2020-12-27 11:01 | CDI ---
Documentation Clarification Form Date: 12/27/2020 10:35:34 AM From: Salena Ledezma RN CCDS Admit Date: 12/24/2020 09:19:00 AM Patient Name: Macario Tobias Visit Number: [id number] Discharge Date: ATTENTION: The Clinical Documentation Specialists (CDI) and [facility] Coding Staff appreciate your assistance in clarifying documentation. Please respond to the clarification below the line at the bottom and electronically sign. The CDI & [facility] Coding staff will review the response and follow-up if needed. Please note: Queries are made part of the Legal Health Record. If you have any questions, please contact the author of this message via ITS. Dr. Sergio Stubbs, We will try to wean him off his oxygen today for COPD. Documented in Internal Medicine Progress Note 12/26. History/Risk Factors: 60-year-old male presents to [facility] for elective sleeve gastrectomy. Medical history: Morbid Obesity with BMI 46, COPD and Asthma. Internal Medicine consult 12/24. Tobacco use: Current every day smoker. Clinical Indicators: Vital signs: 12/24 19:15 B/P 115/65, HR 68, Temp 97.8, RR 14, SpO2 88% 6L nasal cannula Pulse Oximetry: 12/24 21:03 7L High Flow; 12/24 22:24 Spo2 92% 10L High Flow; 12/25 07:40 SpO2 90% 11L High Flow; 12/25 12:27 SpO2 92% 6L High Flow; 12/26 SpO2 92% 4L nasal cannula; 12/27 SpO2 95% 4L nasal cannula. Lung/Breathing assessment 12/25: Scattered rhonchi and wheeze. Internal Medicine Progress note 12/25. Treatment: Habitrol 14mg/24 HR Patch 12/24 to current. Breathing Tx: Albuterol Sulfate 2.5mg Inhalation QID 12/24 to current. Duoneb 3 ml Inhalation Q2H PRN 12/24 to present. O2: High flow oxygen and nasal cannula see above for dates. In your professional opinion, can you please clarify if these findings signify one of the following conditions? Acute Respiratory Failure secondary to COPD exacerbation. Other Diagnosis, please specify Unable to determine Specificity: If known, further specify (if known): With hypercapnia? (pCO2 >50 and pH <7.35) With hypoxia? (pO2 <60 mm Hg or SpO2 <91% on room air) Acute hypoxic respiratory failure due to pt's COPD and nicotine dependence . Documented in the [facility] CONTRERAS / Dr Merida (Last Query Form Revision: June 2019) MTDD
[2020-12-27 11:58] LABS: Glucose,Whole Blood 92 mg/dL (75-99)
[2020-12-27] MEDS ORDERED: KETOROLAC 15 MG/ML 1 ML VIAL IVP SCH (12:00)
--- NOTE | 2020-12-27 14:38 | P.DS ---
Providers Date of admission: 12/24/20 09:19 Expected date of discharge: 12/27/20 Attending physician: Mayur Merida Consults: 12/24/20 14:31 Consult Physician Routine Consulting Provider: Sergio Stubbs Consult Reason/Comments: local management Do you want consulting provider notified?: Yes Primary care physician: Sergio Stubbs [facility] Course: Discharge diagnosis 1. Morbid obesity, BMI 46, extensive intraperitoneal adhesions, incisional hernia status post laparoscopic lysis of adhesions, sleeve gastrectomy and repair of incisional hernia 2. History of COPD and nicotine dependence 3. Acute hypoxic respiratory failure due to patient's COPD and nicotine dependence. Hospital course This is a 60-year-old male with a known history of morbid obesity with BMI of 46. Patient is status post laparoscopic lysis of adhesions, sleeve gastrectomy and repair of incisional hernia. Patient tolerated surgery well. His pain is controlled. He is tolerating diet. His upper GI showed mild hesitancy through the gastric sleeve. Patient denies any difficulty swallowing. He denies any nausea or vomiting. He is passing gas and has had bowel movement. He has been up and ambulating. He is afebrile. He is still requiring oxygen. His oxygen saturations do drop to 88% with ambulating. He'll be discharged home with oxygen. Patient is stable for discharge. Please refer to chart for any further details. Physician Machine Skiver note has been reviewed by physician. Signing provider agrees with the documented findings, assessment, and plan of care. Patient Condition at Discharge: Stable Plan - Discharge Summary Discharge Rx Participant: Yes New Discharge Prescriptions: New bisacodyL [Dulcolax] 5 mg PO DAILY PRN #10 tablet. PRN Reason: Constipation Simethicone 40 mg/0.6 ml Drops [Mylicon Drops] 40 mg PO PCHS PRN #30 ml PRN Reason: Gas HYDROcodone/APAP [[place] Elixir 7.5-325Mg/15Ml] 15 ml PO Q4HR PRN 3 Days #270 ml PRN Reason: Pain Omeprazole [PriLOSEC] 40 mg PO DAILY #30 capsule. Ondansetron Odt [Zofran Odt] 4 mg PO Q8HR PRN #9 tab PRN Reason: Nausea Discontinued Aspirin 81 mg PO DAILY Ibuprofen [Motrin] 800 mg PO DAILY PRN PRN Reason: Pain Ergocalciferol [Vitamin D2 (1250 Mcg = 48296 Iu)] 50,000 unit PO OSPINA Meloxicam 7.5 mg PO BID No Action metFORMIN HCL [Glucophage] 250 mg PO DAILY amLODIPine BESYLATE [Norvasc] 10 mg PO QAM Sertraline [Zoloft] 100 mg PO DAILY Potassium Chloride [Klor-Con 20] 20 meq PO DAILY lisinopriL [Zestril] 20 mg PO BID Furosemide [Lasix] 40 mg PO DAILY atenoloL [Tenormin] 100 mg PO BID Atorvastatin [Lipitor] 20 mg PO HS Cyclobenzaprine [Flexeril] 5 mg PO TID PRN PRN Reason: muscle spasms Tamsulosin [Flomax] 0.4 mg PO DAILY traMADol HCL [Ultram] 50 mg PO DAILY PRN PRN Reason: Pain Tolterodine Tartrate [Tolterodine Tartrate ER] 4 mg PO DAILY Dulaglutide [Trulicity] 1.5 mg SQ OSPINA Calcium Citrate 250 mg PO DAILY Discharge Medication List Furosemide [Lasix] 40 mg PO DAILY 05/02/16 [History] Potassium Chloride [Klor-Con 20] 20 meq PO DAILY 05/02/16 [History] Sertraline [Zoloft] 100 mg PO DAILY 05/02/16 [History] amLODIPine BESYLATE [Norvasc] 10 mg PO QAM 05/02/16 [History] atenoloL [Tenormin] 100 mg PO BID 05/02/16 [History] lisinopriL [Zestril] 20 mg PO BID 05/02/16 [History] metFORMIN HCL [Glucophage] 250 mg PO DAILY 05/02/16 [History] Atorvastatin [Lipitor] 20 mg PO HS 10/17/20 [History] Cyclobenzaprine [Flexeril] 5 mg PO TID PRN 10/17/20 [History] Tamsulosin [Flomax] 0.4 mg PO DAILY 10/17/20 [History] traMADol HCL [Ultram] 50 mg PO DAILY PRN 10/17/20 [History] Tolterodine Tartrate [Tolterodine Tartrate ER] 4 mg PO DAILY 11/07/20 [History] Dulaglutide [Trulicity] 1.5 mg SQ OSPINA 11/20/20 [History] Calcium Citrate 250 mg PO DAILY 12/10/20 [History] HYDROcodone/APAP [[place]et Elixir 7.5-325Mg/15Ml] 15 ml PO Q4HR PRN 3 Days #270 ml 12/27/20 [Rx] Omeprazole [PriLOSEC] 40 mg PO DAILY #30 capsule. 12/27/20 [Rx] Ondansetron Odt [Zofran Odt] 4 mg PO Q8HR PRN #9 tab 12/27/20 [Rx] Simethicone 40 mg/0.6 ml Drops [Mylicon Drops] 40 mg PO PCHS PRN #30 ml 12/27/20 [Rx] bisacodyL [Dulcolax] 5 mg PO DAILY PRN #10 tablet. 12/27/20 [Rx] Follow up Appointment(s)/Referral(s): [facility],Equipment [NON-STAFF] - (*[facility] will deliver a portable oxygen tank to your bedside before discharge. Please call [facility] once home to arrange delivery of your oxygen concentrator. ) [facility] [place] [place] [facility] - 12/28/20 11:00 am Activity/Diet/Wound Care/Special Instructions: Medicine service to complete discharge med rec No driving while taking [place] No lifting over 10 pounds You may shower. No soaking or tub baths for 2 weeks Very light activity until you are reevaluated at your follow up appointment with your surgeon No straws or carbonated beverages Cut or crush all pills to the size smaller than a tic tac Hold all vitamins for 1 week Discharge Disposition: HOME SELF-CARE
[2020-12-27 15:35] VITALS: TEMP 97.5
[2020-12-27 16:54] VITALS: PULSE 66
== END 2020-12-27 17:40 | disposition home or self-care (01) | DRG 619 ==
LOC: 2ORMAIN 09:19 → 4SSUR 17:00
PROVIDERS: ADMIT Surgery; ATTEND Surgery
PROC: 0WJF4ZZ Inspection of Abdominal Wall, Percutaneous Endoscopic Approach (ICD-10-PCS; 2020-12-24)
PROC: 0DNW0ZZ Release Peritoneum, Open Approach (ICD-10-PCS; principal; 2020-12-24 11:15)
PROC: 0WQF0ZZ Repair Abdominal Wall, Open Approach (ICD-10-PCS; principal; 2020-12-24 11:15)
PROC: 0DB60Z3 Excision of Stomach, Open Approach, Vertical (ICD-10-PCS; principal; 2020-12-24 11:15)
DX: E66.01 Morbid (severe) obesity due to excess calories (principal); J96.01 Acute respiratory failure with hypoxia; J44.1 Chronic obstructive pulmonary disease with (acute) exacerbation; E11.9 Type 2 diabetes mellitus without complications; Z53.31 Laparoscopic surgical procedure converted to open procedure; E78.5 Hyperlipidemia, unspecified; F17.210 Nicotine dependence, cigarettes, uncomplicated; Z87.01 Personal history of pneumonia (recurrent); K43.2 Incisional hernia without obstruction or gangrene; K66.0 Peritoneal adhesions (postprocedural) (postinfection); Z68.42 Body mass index [BMI] 45.0-49.9, adult; Z79.1 Long term (current) use of non-steroidal anti-inflammatories (NSAID); Z79.82 Long term (current) use of aspirin; Z79.84 Long term (current) use of oral hypoglycemic drugs; Z79.899 Other long term (current) drug therapy; Z80.42 Family history of malignant neoplasm of prostate; Z80.49 Family history of malignant neoplasm of other genital organs; M48.00 Spinal stenosis, site unspecified; Z90.49 Acquired absence of other specified parts of digestive tract
CPT/HCPCS: 64999; 71046; 74240; 76942; 80048; 80051; 80061; 82310; 82565; 83036; 83735; 84100; 84520; 85025; 88307; 94640; 94760; 94762

== ENCOUNTER → 2020-12-31 | Outpatient (CLI) | payer BC, MEDICARE ==
[2020-12-31 15:18] VITALS: BP 168/86; PULSE 88; TEMP 101.4; BMI 48.9
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
== END ==
LOC: BARWHC3 14:32
PROVIDERS: ATTEND Surgery
DX: Z09 Encounter for follow-up examination after completed treatment for conditions other than malignant neoplasm (principal); I10 Essential (primary) hypertension; E11.9 Type 2 diabetes mellitus without complications; E78.5 Hyperlipidemia, unspecified; M19.90 Unspecified osteoarthritis, unspecified site; F17.210 Nicotine dependence, cigarettes, uncomplicated; Z79.84 Long term (current) use of oral hypoglycemic drugs; Z79.899 Other long term (current) drug therapy; Z98.84 Bariatric surgery status
CPT/HCPCS: 99211

== ENCOUNTER 2021-01-01 03:29 | Inpatient (IN) | payer BC, MEDICARE ==
[2021-01-01] MEDS ORDERED: ACETAMINOPHEN TAB 500 MG TAB PO STA (03:44)
[2021-01-01] MEDS ORDERED: IBUPROFEN 600 MG TAB PO STA (03:44)
[2021-01-01] MEDS ORDERED: SODIUM CHLORIDE 0.9% 1,000 ML IV STA ×3 (03:44→05:13)
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
--- NOTE | 2021-01-01 04:51 | XR ---
EXAM: XR Chest, 1 View CLINICAL HISTORY: ITS.REASON XR Reason: Suspected COVID-19 pneumonia TECHNIQUE: Frontal view of the chest. COMPARISON: 12/26/2020 FINDINGS: Lungs: Similar findings of central vascular congestion or perihilar infiltrates. Patchy bilateral lower lung opacities. Pleural space: Likely small left pleural effusion. No pneumothorax. Heart: Unremarkable. No cardiomegaly. Mediastinum: Unremarkable. Bones/joints: Unremarkable. IMPRESSION: No significant interval change of central vascular congestion/perihilar infiltrates and bilateral lower lung patchy opacities. Small left pleural effusion. Findings may represent infectious/inflammatory process and/or edema.
[2021-01-01 04:52] LABS: Basophils % (A) 0 %; Eosinophils # (A) 0.2 k/uL (0-0.7); Eosinophils % (A) 1 %; HCT 48.9 % (39.0-53.0); HGB 16.1 gm/dL (13.0-17.5); Lymphocytes # (A) 0.9 k/uL (1.0-4.8); Lymphocytes % (A) 5 %; MCH 30.4 pg (25.0-35.0); MCHC 32.9 g/dL (31.0-37.0); MCV 92.5 fL (80.0-100.0); Monocytes # (A) 0.8 k/uL (0-1.0); Monocytes % (A) 4 %; Neutrophils % (A) 89 %; Platelet Count 227 k/uL (150-450); RBC 5.29 m/uL (4.30-5.90); RDW 14.1 % (11.5-15.5); WBC 19.1 k/uL (3.8-10.6)
[2021-01-01 05:02] LABS: INR 1.1 (<1.2); Partial Thromboplastin Time 23.9 sec (22.0-30.0); Prothrombin Time 11.7 sec (9.0-12.0)
[2021-01-01 05:10] LABS: Appearance,Urine Clear (Clear); Bilirubin,Urine 1+ (Negative); Blood,Urine Trace (Negative); Color,Urine Yellow; Glucose,Urine (UA) Negative (Negative); Hyaline Casts,Urine 1 /lpf (0-2); Ketones,Urine 2+ (Negative); Leukocyte Esterase,Urine Negative (Negative); Mucus,Urine Moderate /hpf; Nitrite,Urine Negative (Negative); PH, Urine 6.5 (5.0-8.0); Protein,Urine 2+ (Negative); RBC,Urine 2 /hpf (0-5); Squamous Epithelial Cell,Urine 1 /hpf (0-4); WBC,Urine 2 /hpf (0-5)
[2021-01-01 05:11] LABS: ALT 15 U/L (4-49); AST 23 U/L (17-59); African American GFR (CKD) >90 (>60 ml/min/1.73 sqM); Albumin 3.7 g/dL (3.5-5.0); Alkaline Phosphatase 78 U/L (38-126); Anion Gap 12 mmol/L; Blood Urea Nitrogen 15 mg/dL (9-20); Calcium 9.1 mg/dL (8.4-10.2); Carbon Dioxide 27 mmol/L (22-30); Chloride 96 mmol/L (98-107); Glucose 119 mg/dL (74-99); LDH 693 U/L (313-618); Lipase 127 U/L (23-300); Magnesium 1.7 mg/dL (1.6-2.3); Non-African American GFR(CKD) >90 (>60 ml/min/1.73 sqM); Potassium 4.4 mmol/L (3.5-5.1); Sodium 135 mmol/L (137-145); Total Protein 6.7 g/dL (6.3-8.2)
[2021-01-01] MEDS ORDERED: MORPHINE SULFATE 4 MG/ML SYRINGE IVP PRN (05:12)
[2021-01-01] MEDS ORDERED: MORPHINE SULFATE 4 MG/ML SYRINGE IVP STA (05:12)
[2021-01-01] MEDS ORDERED: IOPAMIDOL CONTRAST (ORAL USE) VIAL PO PRN (05:14)
[2021-01-01 06:19] LABS: C Reactive Protein 201.6 mg/L (<10.0)
[2021-01-01] MEDS ORDERED: cefTRIAXone IN SWFI 1,000 MG/10 ML SYRINGE IVP STA (07:26)
[2021-01-01] MEDS ORDERED: AMPICILLIN-SULBACTAM 3 GM in SODIUM CHLORIDE 0.9% 100 ML IVPB STA (07:30)
--- NOTE | 2021-01-01 07:32 | CT ---
EXAMINATION TYPE: CT abdomen pelvis w con DATE OF EXAM: 01/01/2021 COMPARISON: None. HISTORY: Abdominal pain and fever status post gastric sleeve surgery one week ago. CT DLP: 3059 mGycm, Automated Exposure Control for Dose Reduction was Utilized. CONTRAST: CT scan of the abdomen and pelvis is performed with oral and with IV Contrast, patient injected with 100 mL of Isovue 300. FINDINGS: LUNG BASES: Small to tiny left pleural effusion with associated compressive atelectasis. Trace right pleural effusion. Mild cardiomegaly with elevated left hemidiaphragm. LIVER/GB: Liver diffusely low dense consistent with diffuse fatty infiltration. Gallbladder has diste nded margins and is mildly dilated. Surgical clips causing streak artifact along posterior right chapito in of liver. PANCREAS: No significant abnormality is seen. SPLEEN: No significant abnormality is seen. ADRENALS: Asymmetric thickening to left adrenal gland is nonspecific favors benign lipid rich hyperpl jennifer. KIDNEYS: Areas of cortical volume loss right kidney with 4 to 5 mm calculus upper to midpole level co stephania image 92. Similar 5 mm calculus lower pole level left kidney coronal image 81. Symmetric cortic al medullary uptake and excretion with thin-walled 3.1 cm cyst anteriorly lower pole left kidney imag e 50 series 301. No hydronephrosis seen bilaterally. BOWEL: Some contrast in distal colonic loops likely from Limited upper GI one week earlier. No suspi cious small or large bowel dilatation. Along the suture margins of the gastric sleeve there is ill-de fined fluid and extraluminal air.. A few air-fluid levels are present. There is additional mild to mo derate ill-defined fluid throughout the peritoneal cavity of the upper to mid abdomen. PROSTATE/SEMINAL VESICLES: Central calcifications. Prostate gland upper limits of normal. LYMPH NODES: No greater than 1cm abdominal or pelvic lymph nodes are appreciated. OSSEOUS STRUCTURES: Multilevel spurring in the spine1. Several subacute or more likely old fractures of the posterior right sided lower ribs noted, correlate clinically. OTHER: Overlying vertical skin gabriel. Midline subcutaneous fluid noted IMPRESSION: There is leak identified at site of gastric sleeve with adjacent ill-defined fluid and ex traluminal air along course of sutures.
[2021-01-01] MEDS ORDERED: SODIUM CHLORIDE 0.9% 1,000 ML IV SCH (07:45)
[2021-01-01] MEDS: SODIUM CHLORIDE 0.9% 500 ML 500 ML IV SCH ×3 (08:55→08:58)
[2021-01-01] MEDS: PANTOPRAZOLE 40 MG/10 ML VIAL IV SCH (09:01)
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
--- NOTE | 2021-01-01 10:50 | CDI ---
Documentation Clarification Form Date: 01/01/2021 10:38:59 AM From: Solange Mensah RN, CCDS Admit Date: 01/01/2021 07:39:00 AM Patient Name: Macario Tobias Visit Number: [id number] ATTENTION: The Clinical Documentation Specialists (CDI) and [facility] Coding Staff appreciate your assistance in clarifying documentation. Please respond to the clarification below the line at the bottom and electronically sign. The CDI & [facility] Coding staff will review the response and follow-up if needed. Please note: Queries are made part of the Legal Health Record. If you have any questions, please contact the author of this message via ITS. Dr. Mayur Merida The patient presented with the Fever, tachycardia, and gastric sleeve leak. Additional clarification regarding the etiology/cause of the clinical indicators is requested. History/Risk Factors: Morbid obesity, DM, HLD, HTN, 1 functioning kidney, sleeve gastrectomy 12/24/20 Clinical Indicators: 01/01 0333 Temp 102.8, HR 105, RR 20, B/P 143/88, Spo2 94% on room air with noted increasing O2 needs 0718 on 4L NC Spo2 94% 01/01 WBC: 19.1 Neutrophils 17 Lactic acid: 1.5 LDH 693 CRP 201.6 01/01 CT AP: "There is leak identified at site of gastric sleeve with adjacent ill-defined fluid and extraluminal air along course of sutures." Treatment: ID Consult: not ordered Antibiotics: Unasyn 3gm IVPB Q 8 hrs. 01/01 IV Bolus 0.9% NS 3.5L followed by 130 cc/hr. In your professional opinion, please clarify if these findings signify one of the following conditions: [ ] Sepsis POA [ ] Severe Sepsis with organ failure [ ] Septic Shock [ ] Other, please specify [ ] Unable to determine SIRS Criteria: 2 or more of the following may indicate SIRS Temperature < 96.8F (36C) or > 101.0F (38.3C) Heart Rate > 90 bpm Respiratory Rate > 20 breaths/min or PaCO2 < 32 mmHg White Blood Cell Count > 12,000 or < 4,000 cells/mm3 or > 10% bands (Template Last Reviewed: November 2020) MTDD
[2021-01-01] MEDS ORDERED: IV FLUID CONTINUATION 1,000 ML IV ONE (11:05)
[2021-01-01] MEDS ORDERED: HEPARIN SODIUM,PORCINE 5,000 UNIT/ML 1 ML VIAL ONE (11:46)
[2021-01-01] MEDS ORDERED: HEPARIN SODIUM,PORCINE 5,000 UNIT/ML 1 ML VIAL SQ ONE (11:51)
[2021-01-01] MEDS ORDERED: LACTATED RINGERS 1,000 ML IV ONE ×4 (12:46→14:16)
[2021-01-01] MEDS ORDERED: SODIUM CHLORIDE 0.9% 50 ML with ceFAZolin 2,000 MG IV ONE ×2 (13:13)
[2021-01-01] MEDS ORDERED: NALOXONE 0.4 MG/ML 1 ML VIAL IV PRN (14:16)
[2021-01-01] MEDS ORDERED: METOCLOPRAMIDE 5 MG/ML 2 ML VIAL IVP PRN (14:16)
[2021-01-01] MEDS ORDERED: ONDANSETRON 4 MG/2 ML VIAL IVP PRN (14:16)
--- NOTE | 2021-01-01 14:24 | P.OP ---
Date of Procedure: 01/01/21 Preoperative Diagnosis: Gastric leak Postoperative Diagnosis: Sleeve gastrectomy leak at superior portion of staple line Procedure(s) Performed: Abdominal washout Oversewing of gastric sleeve Drain placement Anesthesia: RICHARD Surgeon: Mayur Merida Estimated Blood Loss (ml): 50 Pathology: none sent Description of Procedure: Patient's placed on the operative table in the supine position. He received general anesthesia. He was then placed in dorsal lithotomy position. His abdomen was prepped and draped usual sterile fashion. The skin gabriel removed. The skin incision was spread with gentle traction. The fascial suture was then cut with a pair of Verduzco scissors. The fascial sutures and removed. The Bookwalter was placed wound. The stomach was entered. There appeared to be evidence of leak at the stomach. The areas washed out. The sleeve staple line was then examined. It appeared to be a disruption of the sleeve staple line at the superior portion. The area was oversewn with 0 Vicryl suture. Methylene blue was placed into the gastric sleeve. In their still some evidence of extravasation. Several times made to close the defect was impossible due to the anatomy. This point a STEFANY drain is placed alongside the sleeve and brought through separate stab incision in the right upper quadrant. The abdomen was areas of bleeding seen. The fascia was closed with looped #1 PDS suture. Wound VAC dressing was applied. Patient was sent to the ICU intubated.
[2021-01-01] MEDS ORDERED: fentaNYL (PF) 50 MCG/ML 2 ML AMP IVP ONE (15:19)
[2021-01-01] MEDS ORDERED: propofoL 100 ML IV ONE (15:46)
--- NOTE | 2021-01-01 16:22 | XR ---
EXAMINATION TYPE: XR chest 1V portable DATE OF EXAM: 01/01/2021 CLINICAL HISTORY: Difficulty breathing and covid positive progress study. Had to be intubated. TECHNIQUE: Single AP portable supine view of the chest is obtained. COMPARISON: Chest x-ray from earlier today FINDINGS: New Endotracheal tube terminates at aortic knob level, approximately 2 to 3 cm above eunice a. Persistent cardiomegaly with atherosclerotic thoracic aorta. Persistent low lung volumes with bilater al multifocal increased opacities along with [id number] left pleural effusion. Multilevel spur ring in the spine IMPRESSION: 1. New endotracheal tube satisfactory in position. 2. Cardiomegaly and low lung volumes with multifocal bilateral opacities and [id number] size l eft pleural effusion all redemonstrated.
[2021-01-01] MEDS ORDERED: SODIUM CHLORIDE 0.9% 1,000 ML IV ONE (16:32)
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
--- NOTE | 2021-01-01 16:55 | P.PCN ---
Date of Procedure: 01/01/21 Preoperative Diagnosis: Acute hypoxic respiratory failure Postoperative Diagnosis: Same Procedure(s) Performed: Insertion of a central line, insertion of an arterial line Anesthesia: local Surgeon: Jennifer Valladares Pathology: none sent Condition: critical Disposition: ICU Operative Findings: Description of Procedure: Central line insertion The [facility] Central Line Insertion Practices form was completed by an independent observer with starting with the first handwash prior to starting sterile technique. A time out was performed. My hands were washed immediately prior to the procedure. I wore a surgical cap, mask with protective eyewear, full gown and sterile gloves throughout the procedure. The patient was placed in Trendelenburg position. RIGHT chest region was prepped using chlorhexidine scrub and draped in sterile fashion using a full drape and sterile probe cover employed. The medial and lateral heads of the sternocleidomastoid muscle were identified as was the carotid pulse. The Internal Jugular vein was identified using the ultrasound. Anesthesia was achieved over the vein using 1% lidocaine. Using real-time out of plane guidance, the introducer needle was inserted into the Internal Jugular vein under direct ultrasound visualization. Venous blood was withdrawn. The syringe was removed and a guidewire was advanced into the introducer needle. The guidewire was visualized in the Internal Jugular Vein by ultrasound. A small incision was made at the skin surface with a scalpel and the introducer needle was exchanged for a dilator over the guidewire. After appropriate dilation was obtained, the dilator was exchanged over the wire for a triple lumen central venous catheter. The wire was removed and the catheter was sutured in place A sterile sorbaview shield was placed over the catheter at the insertion site. The patient tolerated the procedure without any hemodynamic compromise. At time of procedure completion, all ports aspirated and flushed properly. Post-procedure chest x-ray is pending at this time. Estimated blood loss is 0cc. Arterial line insertion Indication: Hemodynamic monitoring. A time-out was completed verifying correct patient, procedure, site, positioning, and implant(s) or special equipment if applicable. Allens test was performed to ensure adequate perfusion. The patients left wrist was prepped and draped in sterile fashion. 1% Lidocaine was used to anesthetize the area. An 18G Arrow arterial line was introduced into the radial artery. The catheter was threaded over the guide wire and the needle was removed with appropriate pulsatile blood return. Blood loss was minimal. The catheter was then sutured in place to the skin and a sterile dressing applied. Perfusion to the extremity distal to the point of catheter insertion was checked and found to be adequate. The patient tolerated the procedure well and there were no complications.
[2021-01-01 17:22] LABS: ABG Base Excess 0.6 mmol/L; ABG HCO3 26 mmol/L (21-25); ABG Oxygen Saturation 94.7 % (94-97); ABG PCO2 49 mmHg (35-45); ABG PH 7.34 (7.35-7.45); ABG PO2 74 mmHg (83-108); ABG TCO2 28 mmol/L (19-24)
[2021-01-01 17:23] LABS: Glucose,Whole Blood 112 mg/dL (75-99)
[2021-01-01 17:24] LABS: Basophils % (A) 0 %; Eosinophils % (A) 0 %; HCT 31.8 % (39.0-53.0); Hypochromasia Moderate; Lymphocytes # (A) 0.5 k/uL (1.0-4.8); Lymphocytes % (A) 4 %; MCH 30.3 pg (25.0-35.0); MCHC 31.3 g/dL (31.0-37.0); MCV 96.7 fL (80.0-100.0); Mean Platelet Volume 8.1; Monocytes # (A) 0.9 k/uL (0-1.0); Monocytes % (A) 7 %; Neutrophils # (A) 10.6 k/uL (1.3-7.7); Neutrophils % (A) 88 %; Platelet Count 151 k/uL (150-450); RBC 3.29 m/uL (4.30-5.90); RDW 14.3 % (11.5-15.5); WBC 12.1 k/uL (3.8-10.6)
--- NOTE | 2021-01-01 17:27 | XR ---
EXAMINATION TYPE: XR chest 1V portable DATE OF EXAM: 01/01/2021 COMPARISON: Earlier same day. HISTORY: Central line placement. TECHNIQUE: Single frontal view of the chest is obtained. FINDINGS: There is interval placement of a right IJ catheter with tip overlying the caudal SVC. Ther e is also a new nasogastric tube with tip overlying the stomach/gastric body. Endotracheal tube remai ns in place. There is persistent [id number] left pleural effusion with accompanying opacity. A dditional right basilar opacity is unchanged. No pneumothorax. Stable cardiomediastinal silhouette. O sseous structures are unchanged. IMPRESSION: Status post support apparatus as above. Otherwise stable chest.
[2021-01-01 17:31] LABS: ALT 11 U/L (4-49); AST 19 U/L (17-59); African American GFR (CKD) >90 (>60 ml/min/1.73 sqM); Albumin 1.8 g/dL (3.5-5.0); Alkaline Phosphatase 44 U/L (38-126); Anion Gap 6 mmol/L; Blood Urea Nitrogen 10 mg/dL (9-20); Carbon Dioxide 23 mmol/L (22-30); Chloride 112 mmol/L (98-107); Glucose 108 mg/dL (74-99); Magnesium 1.4 mg/dL (1.6-2.3); Non-African American GFR(CKD) >90 (>60 ml/min/1.73 sqM); Potassium 3.4 mmol/L (3.5-5.1); Sodium 141 mmol/L (137-145); Total Bilirubin 1.1 mg/dL (0.2-1.3); Total Protein 3.8 g/dL (6.3-8.2)
[2021-01-01 17:54] LABS: Calcium 5.7 mg/dL (8.4-10.2)
[2021-01-01] MEDS ORDERED: Potassium Replacement Protocol 1 EACH MISC MISCELLANE PRN (17:57)
[2021-01-01] MEDS: FLUCONAZOLE IN NACL,ISO-OSM 400 MG in SALINE 1 200ML.BAG IVPB SCH (17:58)
[2021-01-01] MEDS ORDERED: Magnesium Replacement Protocol 1 EACH MISC MISCELLANE PRN (18:12)
[2021-01-01] MEDS: AMPICILLIN-SULBACTAM 3 GM in SODIUM CHLORIDE 0.9% 100 ML IVPB SCH (18:19)
[2021-01-01] MEDS: HYDROmorphone 1 MG/ML 1 ML SYRINGE IVP PRN (19:49)
[2021-01-01] MEDS: MAGNESIUM SULFATE-D5W PMX 1 GM in DEXTROSE/WATER 1 100ML.BAG IVPB SCH ×3 (19:49→21:13)
[2021-01-01 20:23] LABS: Glucose,Whole Blood 97 mg/dL (75-99)
[2021-01-01] MEDS ORDERED: INSULIN ASPART (NovoLOG) 100 UNIT/ML VIAL SQ SCH (21:00)
[2021-01-01] MEDS: CHLORHEXIDINE GLUCONATE 15 ML CUP MUCOUS MEM SCH (21:16)
[2021-01-01] MEDS: POTASSIUM CHLORIDE 20 MEQ in WATER FOR INJECTION 1 100ML.BAG IVPB SCH (23:37)
[2021-01-02] MEDS: POTASSIUM CHLORIDE 20 MEQ in WATER FOR INJECTION 1 100ML.BAG IVPB SCH (00:59)
[2021-01-02] MEDS: AMPICILLIN-SULBACTAM 3 GM in SODIUM CHLORIDE 0.9% 100 ML IVPB SCH ×3 (00:59→16:28)
[2021-01-02] MEDS: HYDROmorphone 1 MG/ML 1 ML SYRINGE IVP PRN ×3 (02:18→22:15)
[2021-01-02 03:54] LABS: Glucose,Whole Blood 95 mg/dL (75-99)
[2021-01-02 04:29] LABS: Basophils % (A) 0 %; Eosinophils # (A) 0.1 k/uL (0-0.7); Eosinophils % (A) 0 %; Lymphocytes % (A) 7 %; MCH 30.2 pg (25.0-35.0); MCV 94.4 fL (80.0-100.0); Mean Platelet Volume 8.3; Monocytes # (A) 0.8 k/uL (0-1.0); Monocytes % (A) 5 %; Neutrophils # (A) 12.8 k/uL (1.3-7.7); Neutrophils % (A) 87 %; Platelet Count 201 k/uL (150-450); RBC 4.35 m/uL (4.30-5.90); RDW 14.5 % (11.5-15.5); WBC 14.7 k/uL (3.8-10.6)
[2021-01-02 04:31] LABS: ABG Base Excess 0.2 mmol/L; ABG HCO3 25 mmol/L (21-25); ABG Oxygen Saturation 98.5 % (94-97); ABG PCO2 41 mmHg (35-45); ABG PH 7.39 (7.35-7.45); ABG PO2 103 mmHg (83-108); ABG TCO2 26 mmol/L (19-24); Allen Test Performed? Yes
[2021-01-02 04:39] LABS: HGB 13.1 gm/dL (13.0-17.5)
[2021-01-02 04:55] LABS: ALT 12 U/L (4-49); AST 20 U/L (17-59); African American GFR (CKD) >90 (>60 ml/min/1.73 sqM); Albumin 2.2 g/dL (3.5-5.0); Alkaline Phosphatase 61 U/L (38-126); Anion Gap 7 mmol/L; Blood Urea Nitrogen 9 mg/dL (9-20); Calcium 7.5 mg/dL (8.4-10.2); Carbon Dioxide 24 mmol/L (22-30); Chloride 104 mmol/L (98-107); Glucose 102 mg/dL (74-99); Magnesium 2.3 mg/dL (1.6-2.3); Non-African American GFR(CKD) >90 (>60 ml/min/1.73 sqM); Potassium 4.4 mmol/L (3.5-5.1); Sodium 135 mmol/L (137-145); Total Bilirubin 1.5 mg/dL (0.2-1.3); Total Protein 4.5 g/dL (6.3-8.2)
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
[2021-01-02] MEDS: CHLORHEXIDINE GLUCONATE 15 ML CUP MUCOUS MEM SCH (08:32)
[2021-01-02] MEDS: PANTOPRAZOLE 40 MG/10 ML VIAL IV SCH (08:32)
[2021-01-02] MEDS: ENOXAPARIN 40 MG/0.4 ML SYRINGE SQ SCH (08:32)
--- NOTE | 2021-01-02 09:03 | XR ---
EXAMINATION TYPE: XR chest 1V portable DATE OF EXAM: 01/02/2021 COMPARISON: 01/01/2021 INDICATION: Tube placement TECHNIQUE: Single frontal view of the chest is obtained. FINDINGS: The heart size is enlarged. The pulmonary vasculature is normal. Linear opacities are at the right lung base likely on the basis of atelectasis, present previously. T here is silhouetting the left diaphragm. Small left pleural effusion may be present. Endotracheal tube tip is above the evangelist. Nasogastric tube transverses the thorax. Right central reji ous catheter is present tip in the superior vena cava region. IMPRESSION: 1. Small left pleural effusion. 2. Platelike atelectasis right lung base. 3. Lines and catheters discussed above
[2021-01-02 10:58] VITALS: BMI 50.1
[2021-01-02 11:24] LABS: ABG Base Excess -0.1 mmol/L; ABG HCO3 25 mmol/L (21-25); ABG Oxygen Saturation 96.2 % (94-97); ABG PCO2 40 mmHg (35-45); ABG PO2 77 mmHg (83-108); ABG TCO2 26 mmol/L (19-24)
[2021-01-02 11:25] LABS: Allen Test Performed? no
[2021-01-02 11:47] LABS: Glucose,Whole Blood 104 mg/dL (75-99)
[2021-01-02 11:51] LABS: Glucose,Whole Blood 104 mg/dL (75-99)
[2021-01-02] MEDS: INSULIN ASPART (NovoLOG) 100 UNIT/ML VIAL SQ SCH ×2 (12:06→17:45)
[2021-01-02 12:53] LABS: ALT 11 U/L (4-49); AST 20 U/L (17-59); African American GFR (CKD) >90 (>60 ml/min/1.73 sqM); Albumin 2.1 g/dL (3.5-5.0); Alkaline Phosphatase 60 U/L (38-126); Anion Gap 8 mmol/L; Blood Urea Nitrogen 9 mg/dL (9-20); Calcium 7.5 mg/dL (8.4-10.2); Carbon Dioxide 22 mmol/L (22-30); Chloride 106 mmol/L (98-107); Glucose 103 mg/dL (74-99); Magnesium 2.3 mg/dL (1.6-2.3); Non-African American GFR(CKD) >90 (>60 ml/min/1.73 sqM); Phosphorus 3.3 mg/dL (2.5-4.5); Potassium 4.1 mmol/L (3.5-5.1); Sodium 136 mmol/L (137-145); Total Bilirubin 1.7 mg/dL (0.2-1.3); Total Protein 4.4 g/dL (6.3-8.2)
--- NOTE | 2021-01-02 13:03 | P.PN ---
Subjective Progress Note Date: 01/02/21 CHIEF COMPLAINT: Gastric leak HISTORY OF PRESENT ILLNESS: Patient is status post oversewing of gastric sleeve, abdominal washout and drain placement for sleeve gastrectomy leak at superior portion of the staple line. Currently in the ICU on mechanical and and sedated. He did have a temp of 100.8 this morning white count 14.7 hemoglobin 13.1 PHYSICAL EXAM: VITAL SIGNS: Reviewed. GENERAL: Well-developed in no acute distress. HEENT: No sclera icterus. Extraocular movements grossly intact. Moist buccal mucosa. Head is atraumatic, normocephalic. ABDOMEN: Soft. Patient has wound VAC in place and mid abdomen. STEFANY drain serosanguineous fluid. NEUROLOGIC: Patient on mechanical ventilation and sedated ASSESSMENT: 1. Sleeve gastrectomy leak at superior portion of staple line status post overs fraser of gastric sleeve, abdominal washout and drain placement. Postop day #1 PLAN: -Continue ICU management -Continue supportive care -Consult dietitian for TPN for nutrition support -Continue antibiotics -Continue IV fluids -Subcu heparin for DVT prophylaxis Physician [employer]man note has been reviewed by physician. Signing provider agrees with the documented findings, assessment, and plan of care. Objective - Vital Signs Vital signs: Vital Signs Temp 99.2 F 01/02/21 12:00 Pulse 87 01/02/21 12:30 Resp 25 H 01/02/21 12:30 BP 112/60 01/01/21 16:15 Pulse Ox 93 L 01/02/21 12:30 Intake & Output 01/01/21 01/02/21 01/02/21 18:59 06:59 18:59 Intake Total 3558.061 2755.541 1089.936 Output Total 605 760 365 Balance 2953.061 1995.541 724.936 Weight 141.612 kg 154 kg 154 kg Intake: IV 3500 2400 900 Ampicillin-Sulbactam 3 gm 100 In Sodium Chloride 0.9% 100 ml @ 200 mls/hr IVPB ONCE STA Rx#:[id number] Fluconazole in NaCl,Iso- 400 Osm 400 mg In Saline 1 200ml.bag @ 100 mls/hr IVPB DAILY@1400 [facility] Rx#: [id number] Lactated Ringers 1,000 ml 300 1800 900 @ 150 mls/hr IV .Q6H40M ONE Rx#:[id number] Magnesium Sulfate-D5w Pmx 300 1 gm In Dextrose/Water 1 100ml.bag @ 100 mls/hr IVPB Q1H [facility] Rx#: [id number] Potassium Chloride 20 meq 200 In Water For Injection 1 100ml.bag @ 50 mls/hr IVPB Q2H [facility] Rx#: [id number] Sodium Chloride 0.9% 1, 1000 000 ml @ 999 mls/hr IV . Q1H1M ONE Rx#:[id number] Intake, IV Titration 58.061 355.541 189.936 Amount propofoL 1,000 mg In 58.061 355.541 189.936 Empty Bag 1 bag @ Titrate IV .Q0M [facility] Rx#: [id number] Output: Drainage 170 100 20 Abdomen 170 100 20 Upper Abdomen 0 0 Urine 410 660 345 Estimated Blood Loss 25 Other: Voiding Method Indwelling Catheter Indwelling Catheter Indwelling Catheter ABP, PAP, CO, CI - Last Documented Arterial Blood Pressure 89/41 - Labs CBC & Chem 7: 01/02/21 04:00 01/02/21 04:00 Labs: Abnormal Lab Results - Last 24 Hours (Table) 01/01/21 01/01/21 01/01/21 Range/Units 16:22 16:57 17:18 WBC 12.1 H (3.8-10.6) k/uL RBC 3.29 L (4.30-5.90) m/uL Hgb 10.0 L D (13.0-17.5) gm/dL Hct 31.8 L (39.0-53.0) % Neutrophils # 10.6 H (1.3-7.7) k/uL Lymphocytes # 0.5 L (1.0-4.8) k/uL ABG pH 7.34 L (7.35-7.45) ABG pCO2 49 H (35-45) mmHg ABG pO2 74 L (83-108) mmHg ABG HCO3 26 H (21-25) mmol/L ABG Total CO2 28 H (19-24) mmol/L ABG O2 Saturation (94-97) % Sodium (137-145) mmol/L Potassium 3.4 L (3.5-5.1) mmol/L Chloride 112 H (98-107) mmol/L Creatinine 0.52 L (0.66-1.25) mg/dL Glucose 108 H (74-99) mg/dL POC Glucose (mg/dL) (75-99) mg/dL Calcium 5.7 L* (8.4-10.2) mg/dL Magnesium 1.4 L (1.6-2.3) mg/dL Total Bilirubin (0.2-1.3) mg/dL Total Protein 3.8 L (6.3-8.2) g/dL Albumin 1.8 L (3.5-5.0) g/dL 01/01/21 01/02/21 01/02/21 Range/Units 17:22 04:00 04:00 WBC 14.7 H (3.8-10.6) k/uL RBC (4.30-5.90) m/uL Hgb (13.0-17.5) gm/dL Hct (39.0-53.0) % Neutrophils # 12.8 H (1.3-7.7) k/uL Lymphocytes # (1.0-4.8) k/uL ABG pH (7.35-7.45) ABG pCO2 (35-45) mmHg ABG pO2 (83-108) mmHg ABG HCO3 (21-25) mmol/L ABG Total CO2 (19-24) mmol/L ABG O2 Saturation (94-97) % Sodium 135 L (137-145) mmol/L Potassium (3.5-5.1) mmol/L Chloride (98-107) mmol/L Creatinine (0.66-1.25) mg/dL Glucose 102 H (74-99) mg/dL POC Glucose (mg/dL) 112 H (75-99) mg/dL Calcium 7.5 L (8.4-10.2) mg/dL Magnesium (1.6-2.3) mg/dL Total Bilirubin 1.5 H (0.2-1.3) mg/dL Total Protein 4.5 L (6.3-8.2) g/dL Albumin 2.2 L (3.5-5.0) g/dL 01/02/21 01/02/21 01/02/21 Range/Units 04:24 11:20 11:46 WBC (3.8-10.6) k/uL RBC (4.30-5.90) m/uL Hgb (13.0-17.5) gm/dL Hct (39.0-53.0) % Neutrophils # (1.3-7.7) k/uL Lymphocytes # (1.0-4.8) k/uL ABG pH (7.35-7.45) ABG pCO2 (35-45) mmHg ABG pO2 77 L (83-108) mmHg ABG HCO3 (21-25) mmol/L ABG Total CO2 26 H 26 H (19-24) mmol/L ABG O2 Saturation 98.5 H (94-97) % Sodium (137-145) mmol/L Potassium (3.5-5.1) mmol/L Chloride (98-107) mmol/L Creatinine (0.66-1.25) mg/dL Glucose (74-99) mg/dL POC Glucose (mg/dL) 104 H (75-99) mg/dL Calcium (8.4-10.2) mg/dL Magnesium (1.6-2.3) mg/dL Total Bilirubin (0.2-1.3) mg/dL Total Protein (6.3-8.2) g/dL Albumin (3.5-5.0) g/dL 01/02/21 Range/Units 11:50 WBC (3.8-10.6) k/uL RBC (4.30-5.90) m/uL Hgb (13.0-17.5) gm/dL Hct (39.0-53.0) % Neutrophils # (1.3-7.7) k/uL Lymphocytes # (1.0-4.8) k/uL ABG pH (7.35-7.45) ABG pCO2 (35-45) mmHg ABG pO2 (83-108) mmHg ABG HCO3 (21-25) mmol/L ABG Total CO2 (19-24) mmol/L ABG O2 Saturation (94-97) % Sodium (137-145) mmol/L Potassium (3.5-5.1) mmol/L Chloride (98-107) mmol/L Creatinine (0.66-1.25) mg/dL Glucose (74-99) mg/dL POC Glucose (mg/dL) 104 H (75-99) mg/dL Calcium (8.4-10.2) mg/dL Magnesium (1.6-2.3) mg/dL Total Bilirubin (0.2-1.3) mg/dL Total Protein (6.3-8.2) g/dL Albumin (3.5-5.0) g/dL Microbiology - Last 24 Hours (Table) 01/01/21 20:52 Gram Stain - Preliminary Sputum Sputum Culture - Preliminary 01/01/21 04:05 Blood Culture - Preliminary Blood No Growth after 24 hours 01/01/21 04:21 Blood Culture - Preliminary Blood No Growth after 24 hours
[2021-01-02 13:12] LABS: Triglycerides 113 mg/dL (<150)
[2021-01-02 13:20] LABS: Ionized Calcium 4.7 mg/dL (4.5-5.3)
[2021-01-02] MEDS ORDERED: MVI, ADULT NO.4 WITH VIT K 10 ML, TRACE (CONC-1ML/DOSE) 1 ML in AMINO ACID 5%-D15W+LYTE... IV ONE ×3 (13:30)
[2021-01-02] MEDS: FLUCONAZOLE IN NACL,ISO-OSM 400 MG in SALINE 1 200ML.BAG IVPB SCH (14:22)
--- NOTE | 2021-01-02 16:00 | CONS ---
CONSULTATION DATE OF CONSULTATION: 01/01/2021 A 60-year-old white male underwent gastric sleeve procedure. He was found to have a gastric leak after being home. He was admitted to the hospital. He had esophagram, upper GI series before he left the hospital, which was all normal. He has a history of smoking and diabetes, which was risk for leak. After he had open gastrectomy and lysis of adhesions during surgery, the patient went back and had an exploratory laparotomy at the sleeve gastrectomy. Leak at this superior portion of the midline. He underwent over-sewing of the gastric sleeve and abdominal washout and drain was placed and following a wound VAC was placed. He came to the ICU. He became somnolent, short of breath and lethargic. He was reintubated and placed on the ventilator. REVIEW OF SYSTEMS: Fourteen-point review of systems, he is on the vent. PAST MEDICAL HISTORY: COPD, nicotine addiction many years, spinal stenosis, obesity, hypertension acceleration, diabetes history current everyday smoker many years. FAMILY HISTORY: Father with prostate cancer. Mother with uterine cancer. HOME MEDICATIONS: He takes calcium 250 mg daily, Trulicity 1.5 subcu weekly, tramadol 50 daily, Flomax 0.4 daily, Flexeril 5 t.i.d. p.r.n., Lipitor 20 daily, Glucophage 250 daily, Zestril 20 b.i.d., Norvasc 10 mg daily, potassium chloride 20 mEq daily, Lasix 40 daily, [place] p.r.n. for pain, Tenormin 100 b.i.d., Zoloft 100 daily, Detrol LA 4 daily. ALLERGIES: See chart. PHYSICAL EXAMINATION: Temperature postop like 102 to 102.8 down to 97.7. Broad-spectrum antibiotics were started. Pulse is 70s 80s. Respiratory rate is 25 to 30. Blood pressure 130s to 150s up to 170 systolic over to 50s to 90s. O2 saturation 94 on the vent. He is obese and resting comfortably on the vent. CARDIOVASCULAR: S1, S2. LUNGS: Scattered rhonchi and wheeze. ABDOMEN: Bandages. EXTREMITIES: 2+ edema. White count 19.1, hemoglobin 16. Sodium 135, potassium 4.4. INR 1.16. ASSESSMENT: 1. Gastric sleeve perforation into abdominal infection. 2. Morbid obesity. 3. Hypertension. 4. Diabetes. 5. Nicotine addiction. 6. Chronic obstructive pulmonary disease. 7. History of pancreatitis and gallbladder. 8. History of spinal stenosis. We will try to wean him off the ventilator. Accu-Chek protocol. GI prophylaxis. DVT prophylaxis. Prognosis guarded. Broad-spectrum antibiotics. Consult done on 01/01/2021. MMISRAL / IJN: [id number] /
--- NOTE | 2021-01-02 16:44 | PN ---
PROGRESS NOTE H[age]-old white male remains on the ventilator, getting tube feeding. He is on IV ampicillin sulbactam 3 grams every 8 hours for intraabdominal infection, pain control, Lovenox subcutaneously, Reglan, potassium replacement protocol, parenteral vitamins, remaining on the ventilator at this time. His white count is down to 10. He is resting comfortably on mechanical ventilation. FiO2 50%, 94% oxygen. Blood pressure 129/50, respiratory rate 20 to 24, pulse 78 to 80, temperature 98.7. CARDIOVASCULAR: S1, S2. LUNGS: Transmitted upper airway signs. GI: Soft. EXTREMITIES: Two plus edema. Labs, as mentioned, showed sodium 136, potassium 4.1. White count is down to 14, hemoglobin is stable. Glucose in the low 100s. Calcium low at 7.5. Total bilirubin 1.7, albumin 2.1. ASSESSMENT: Status post gastric sleeve with esophageal leak, small bowel leak, intraabdominal sepsis. Broad-spectrum antibiotics are maintaining. Continue on broad-spectrum antibiotics. Try to wean vent. Prognosis guarded. Tube feedings Accu-Chek protocols. Please see further orders in ICU. MMODL / IJN: [id number] /
[2021-01-02 17:44] LABS: Glucose,Whole Blood 102 mg/dL (75-99)
--- NOTE | 2021-01-02 23:31 | PN ---
PROGRESS NOTE DATE OF SERVICE: 01/02/2021 REASON FOR FOLLOWUP: Secondary peritonitis from gastric sleeve leak. INTERVAL HISTORY: The patient did have a low-grade fever or 100.2 degrees Fahrenheit this evening with 100.8 this morning. The patient is hemodynamically stable, not on any pressor support. FiO2 is currently stable at 50%. No significant purulent secretions in the ET or any diarrhea reported by the nursing staff. PHYSICAL EXAMINATION: Blood pressure 125/61, pulse 80, temperature 100.2. He is 93% on 50% FiO2. General description is a middle-aged male intubated on the vent. RESPIRATORY SYSTEM: Unlabored breathing with decreased breath sounds at the base. No wheeze. HEART: S1, S2. Regular rate and rhythm. ABDOMEN: Soft. No tenderness. LABS: BUN of 9, creatinine 0.78. Sputum currently pending. Blood culture so far negative. DIAGNOSTIC IMPRESSION AND PLAN: Patient with secondary peritonitis from a gastric sleeve leak, status post repair. The patient is currently covered with Unasyn and Diflucan. That will be continued while monitoring clinical course closely. Continue with supportive care. MMODL / IJN: [id number] /
[2021-01-03 00:42] LABS: Glucose,Whole Blood 104 mg/dL (75-99)
[2021-01-03] MEDS: AMPICILLIN-SULBACTAM 3 GM in SODIUM CHLORIDE 0.9% 100 ML IVPB SCH ×4 (00:59→18:06)
[2021-01-03] MEDS: CHLORHEXIDINE GLUCONATE 15 ML CUP MUCOUS MEM SCH ×2 (01:00→08:12)
[2021-01-03] MEDS: INSULIN ASPART (NovoLOG) 100 UNIT/ML VIAL SQ SCH ×4 (01:00→17:48)
[2021-01-03] MEDS: HYDROmorphone 1 MG/ML 1 ML SYRINGE IVP PRN ×7 (01:58→21:47)
[2021-01-03 04:27] LABS: Basophils % (A) 0 %; Eosinophils # (A) 0.3 k/uL (0-0.7); Eosinophils % (A) 2 %; HCT 39.6 % (39.0-53.0); HGB 12.5 gm/dL (13.0-17.5); Hypochromasia Slight; Lymphocytes # (A) 0.9 k/uL (1.0-4.8); Lymphocytes % (A) 7 %; MCH 29.6 pg (25.0-35.0); MCHC 31.4 g/dL (31.0-37.0); MCV 94.1 fL (80.0-100.0); Mean Platelet Volume 8.3; Monocytes # (A) 0.6 k/uL (0-1.0); Monocytes % (A) 5 %; Neutrophils # (A) 10.7 k/uL (1.3-7.7); Neutrophils % (A) 85 %; Platelet Count 214 k/uL (150-450); RBC 4.21 m/uL (4.30-5.90); RDW 14.5 % (11.5-15.5); WBC 12.6 k/uL (3.8-10.6)
[2021-01-03 04:42] LABS: ALT 11 U/L (4-49); AST 24 U/L (17-59); African American GFR (CKD) >90 (>60 ml/min/1.73 sqM); Albumin 2.2 g/dL (3.5-5.0); Alkaline Phosphatase 72 U/L (38-126); Anion Gap 6 mmol/L; Blood Urea Nitrogen 10 mg/dL (9-20); Calcium 7.8 mg/dL (8.4-10.2); Carbon Dioxide 25 mmol/L (22-30); Chloride 106 mmol/L (98-107); Glucose 109 mg/dL (74-99); Magnesium 2.4 mg/dL (1.6-2.3); Non-African American GFR(CKD) >90 (>60 ml/min/1.73 sqM); Phosphorus 3.4 mg/dL (2.5-4.5); Potassium 3.5 mmol/L (3.5-5.1); Sodium 137 mmol/L (137-145); Total Bilirubin 1.3 mg/dL (0.2-1.3); Total Protein 4.5 g/dL (6.3-8.2)
[2021-01-03 05:56] LABS: ABG Base Excess 2.8 mmol/L; ABG HCO3 27 mmol/L (21-25); ABG PCO2 39 mmHg (35-45); ABG PH 7.44 (7.35-7.45); ABG PO2 71 mmHg (83-108); ABG TCO2 28 mmol/L (19-24); Allen Test Performed? Yes
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
--- NOTE | 2021-01-03 07:15 | XR ---
EXAMINATION TYPE: XR chest 1V portable DATE OF EXAM: 01/03/2021 COMPARISON: 01/02/2021 HISTORY: SOB, Follow Up FINDINGS: Indwelling tubes and catheters are unchanged. No change in bibasilar opacities. Stable appearance of the cardio-mediastinal structures at this time. Pleural effusion unchanged. IMPRESSION: 1. Stable portable chest. Clinical correlation and follow up until resolution is recommended.
[2021-01-03] MEDS: PANTOPRAZOLE 40 MG/10 ML VIAL IV SCH (08:12)
[2021-01-03] MEDS: ENOXAPARIN 40 MG/0.4 ML SYRINGE SQ SCH (08:13)
[2021-01-03] MEDS: POTASSIUM CHLORIDE 20 MEQ in WATER FOR INJECTION 1 100ML.BAG IVPB SCH ×2 (09:49→12:13)
[2021-01-03 12:00] LABS: Glucose,Whole Blood 100 mg/dL (75-99)
--- NOTE | 2021-01-03 12:37 | P.DS ---
Providers Date of admission: 01/01/21 07:39 Expected date of discharge: 01/03/21 Attending physician: Mayur Merida Consults: 01/01/21 14:16 Consult Physician Routine Consulting Provider: Sergio Stubbs Consult Reason/Comments: Medical management Do you want consulting provider notified?: Yes Consult Physician Routine Consulting Provider: Av Rodriguez Consult Reason/Comments: Gastric perforation Do you want consulting provider notified?: Yes 01/01/21 16:20 Consult Physician Urgent Consulting Provider: Jennifer Valladares Consult Reason/Comments: ventilator management Do you want consulting provider notified?: Already Contacted Primary care physician: Sergio Stubbs Hospital Course: Discharge diagnosis 1. Sleeve gastrectomy leak at superior portion of staple line status post exploratory laparotomy with abdominal washout, oversewing of gastric sleeve and drain placement. Hospital course This is a 60-year-old male who presented to the hospital with complaints of fever and acute onset of abdominal pain. Patient underwent CAT scan in the emergency room showed evidence of a gastric leak from his sleeve. Patient had open sleeve gastrectomy on 12/24/2020 and came back to the ER on 01/01/2021 with acute abdominal pain and fever. Patient was taken to the OR on 01/01/2021 for exploratory laparotomy with abdominal washout, oversewing of gastric sleeve and drain placement. Patient is still having evidence of a persistent leak and therefore requires transfer to a tertiary care center. Please refer to hospital chart for further details. Physician Manager Utilities note has been reviewed by physician. Signing provider agrees with the documented findings, assessment, and plan of care. Patient Condition at Discharge: Stable Plan - Discharge Summary Discharge Rx Participant: No New Discharge Prescriptions: No Action metFORMIN HCL [Glucophage] 250 mg PO DAILY amLODIPine BESYLATE [Norvasc] 10 mg PO DAILY Potassium Chloride [Klor-Con 20] 20 meq PO DAILY lisinopriL [Zestril] 20 mg PO BID Furosemide [Lasix] 40 mg PO DAILY Atorvastatin [Lipitor] 20 mg PO HS Cyclobenzaprine [Flexeril] 5 mg PO TID PRN PRN Reason: muscle spasms Tamsulosin [Flomax] 0.4 mg PO DAILY traMADol HCL [Ultram] 50 mg PO DAILY PRN PRN Reason: Pain Dulaglutide [Trulicity] 1.5 mg SQ OSPINA Calcium Citrate 250 mg PO DAILY bisacodyL [Dulcolax] 5 mg PO DAILY PRN #10 tablet. PRN Reason: Constipation Simethicone 40 mg/0.6 ml Drops [Mylicon Drops] 40 mg PO PCHS PRN #30 ml PRN Reason: Gas HYDROcodone/APAP [[place] 7.5-325Mg/15Ml] 15 ml PO Q4HR PRN 3 Days #270 ml PRN Reason: Pain Omeprazole [PriLOSEC] 40 mg PO DAILY #30 capsule. Ondansetron Odt [Zofran Odt] 4 mg PO Q8HR PRN #9 tab PRN Reason: Nausea Levofloxacin [Levaquin] 500 mg PO DAILY Sertraline [Zoloft] 100 mg PO DAILY Tolterodine Tartrate [Detrol LA] 4 mg PO DAILY Atenolol [Tenormin] 100 mg PO BID Discharge Medication List Furosemide [Lasix] 40 mg PO DAILY 05/02/16 [History] Potassium Chloride [Klor-Con 20] 20 meq PO DAILY 05/02/16 [History] amLODIPine BESYLATE [Norvasc] 10 mg PO DAILY 05/02/16 [History] lisinopriL [Zestril] 20 mg PO BID 05/02/16 [History] metFORMIN HCL [Glucophage] 250 mg PO DAILY 05/02/16 [History] Atorvastatin [Lipitor] 20 mg PO HS 10/17/20 [History] Cyclobenzaprine [Flexeril] 5 mg PO TID PRN 10/17/20 [History] Tamsulosin [Flomax] 0.4 mg PO DAILY 10/17/20 [History] traMADol HCL [Ultram] 50 mg PO DAILY PRN 10/17/20 [History] Dulaglutide [Trulicity] 1.5 mg SQ OSPINA 11/20/20 [History] Calcium Citrate 250 mg PO DAILY 12/10/20 [History] HYDROcodone/APAP [[place]ir 7.5-325Mg/15Ml] 15 ml PO Q4HR PRN 3 Days #270 ml 12/27/20 [Rx] Omeprazole [PriLOSEC] 40 mg PO DAILY #30 capsule. 12/27/20 [Rx] Ondansetron Odt [Zofran Odt] 4 mg PO Q8HR PRN #9 tab 12/27/20 [Rx] Simethicone 40 mg/0.6 ml Drops [Mylicon Drops] 40 mg PO PCHS PRN #30 ml 12/27/20 [Rx] bisacodyL [Dulcolax] 5 mg PO DAILY PRN #10 tablet. 12/27/20 [Rx] Levofloxacin [Levaquin] 500 mg PO DAILY 12/31/20 [History] Atenolol [Tenormin] 100 mg PO BID 01/01/21 [History] Sertraline [Zoloft] 100 mg PO DAILY 01/01/21 [History] Tolterodine Tartrate [Detrol LA] 4 mg PO DAILY 01/01/21 [History] Follow up Appointment(s)/Referral(s): Sergio Stubbs MD [Primary Care Provider] - 1-2 days
[2021-01-03] MEDS ORDERED: 1: MVI, ADULT NO.4 WITH VIT K 10 ML, TRACE (CONC-1ML/DOSE) 1 ML in AMINO ACID 5%-D15W+LY IV SCH ×3 (13:00)
[2021-01-03] MEDS: FLUCONAZOLE IN NACL,ISO-OSM 400 MG in SALINE 1 200ML.BAG IVPB SCH (15:05)
[2021-01-03 16:01] VITALS: TEMP 98.1
[2021-01-03 17:47] LABS: Glucose,Whole Blood 82 mg/dL (75-99)
--- NOTE | 2021-01-03 18:02 | PN ---
PROGRESS NOTE DATE OF SERVICE: 01/03/2021 REASON FOR FOLLOWUP: Gastric sleeve leak. INTERVAL HISTORY: The patient is currently afebrile. The patient has been extubated. The patient is breathing comfortably. The patient denies having any chest pain or shortness of breath. Occasional cough. Has been complaining of abdominal pain, but no worsening. No nausea, no vomiting. PHYSICAL EXAMINATION: Blood pressure 163/68 with a pulse of 81, temperature 98.1. He is 91% on L nasal cannula. General description is a middle-aged male lying in bed in no distress. RESPIRATORY SYSTEM: Unlabored breathing with decreased breath sounds at the base. No wheeze. HEART: S1, S2. Regular rate and rhythm. ABDOMEN: Soft. Mildly distended. No guarding or rigidity. LABS: Hemoglobin is 12.5, white count 12.6, BUN of 10, creatinine 0.69. Blood culture negative. DIAGNOSTIC IMPRESSION AND PLAN: Patient with secondary peritonitis from a gastric sleeve leak, possible transfer to [facility] for endoscopic repair of the leak. Patient is currently covered with Unasyn and Diflucan; to continue while monitoring his clinical course closely. Continue with supportive care. MMODL / IJN: [id number] /
[2021-01-03 22:45] VITALS: BP 136/80; PULSE 72; RESP 16
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
== END 2021-01-03 22:45 | disposition short-term general hospital (02) | DRG 326 ==
LOC: EC 03:29 → 1SOBS 07:39 → 2SICU 15:29
PROVIDERS: ADMIT Surgery; ATTEND Surgery
PROC: 5A1945Z Respiratory Ventilation, 24-96 Consecutive Hours (ICD-10-PCS; 2021-01-01)
PROC: 03HY32Z Insertion of Monitoring Device into Upper Artery, Percutaneous Approach (ICD-10-PCS; 2021-01-01)
PROC: 4A133J1 Monitoring of Arterial Pulse, Peripheral, Percutaneous Approach (ICD-10-PCS; 2021-01-01)
PROC: 02HV33Z Insertion of Infusion Device into Superior Vena Cava, Percutaneous Approach (ICD-10-PCS; 2021-01-01)
PROC: 4A133B1 Monitoring of Arterial Pressure, Peripheral, Percutaneous Approach (ICD-10-PCS; 2021-01-01)
PROC: 0D9670Z Drainage of Stomach with Drainage Device, Via Natural or Artificial Opening (ICD-10-PCS; 2021-01-01)
PROC: 3E0436Z Introduction of Nutritional Substance into Central Vein, Percutaneous Approach (ICD-10-PCS; 2021-01-01)
PROC: 0DQ60ZZ Repair Stomach, Open Approach (ICD-10-PCS; principal; 2021-01-01 12:35)
PROC: 3E1M38Z Irrigation of Peritoneal Cavity using Irrigating Substance, Percutaneous Approach (ICD-10-PCS; principal; 2021-01-01 12:35)
DX: K95.89 Other complications of other bariatric procedure (principal); J18.9 Pneumonia, unspecified organism; J96.01 Acute respiratory failure with hypoxia; K65.1 Peritoneal abscess; A41.9 Sepsis, unspecified organism; K65.9 Peritonitis, unspecified; J44.0 Chronic obstructive pulmonary disease with (acute) lower respiratory infection; Z68.43 Body mass index [BMI] 50.0-59.9, adult; J98.11 Atelectasis; E11.9 Type 2 diabetes mellitus without complications; E66.01 Morbid (severe) obesity due to excess calories; Z20.822 Contact with and (suspected) exposure to COVID-19; K66.0 Peritoneal adhesions (postprocedural) (postinfection); E78.5 Hyperlipidemia, unspecified; I10 Essential (primary) hypertension; M48.00 Spinal stenosis, site unspecified; M19.90 Unspecified osteoarthritis, unspecified site; F41.9 Anxiety disorder, unspecified; F17.200 Nicotine dependence, unspecified, uncomplicated; R53.81 Other malaise; Z79.84 Long term (current) use of oral hypoglycemic drugs; Z79.899 Other long term (current) drug therapy; Z87.01 Personal history of pneumonia (recurrent); Z90.81 Acquired absence of spleen; Z87.19 Personal history of other diseases of the digestive system; Z87.81 Personal history of (healed) traumatic fracture; Z87.828 Personal history of other (healed) physical injury and trauma; Z71.3 Dietary counseling and surveillance; Z98.890 Other specified postprocedural states; Y83.2 Surgical operation with anastomosis, bypass or graft as the cause of abnormal reaction of the patient, or of later complication, without mention of misadventure at the time of the procedure; Z88.8 Allergy status to other drugs, medicaments and biological substances; Z80.42 Family history of malignant neoplasm of prostate; Z80.49 Family history of malignant neoplasm of other genital organs
CPT/HCPCS: 36415; 71045; 74177; 80053; 81001; 82330; 82805; 83605; 83615; 83690; 83735; 84100; 84478; 85025; 85610; 85730; 86140; 87040; 87070; 87205; 87635; 93005; 94002; 94003; 96361; 96365; 96366; 96374; 96375; 99285

== ENCOUNTER 2021-03-01 09:01 | Emergency (ER) | payer BC ==
[2021-03-01 09:08] VITALS: RESP 18; TEMP 98.1
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
[2021-03-01] MEDS: LIDOCAINE 1% INJ 10MG/ML (20 ML MDV) SQ ONE ×2 (10:19→10:32)
[2021-03-01] MEDS ORDERED: IOPAMIDOL-370 50ML BTL INJ ONE (10:28)
--- NOTE | 2021-03-01 12:13 | US ---
EXAMINATION TYPE: US venous doppler duplex UE LT DATE OF EXAM: 03/01/2021 COMPARISON: NONE CLINICAL HISTORY: left upper extremity clot. SIDE PERFORMED: LEFT Left Arm: Positive for DVT. The basilic vein is distended and noncompressible with limited flow from the elbow all the way up to the axillary vein. The axillary vein is also distended with internal echo es. There is continuous flow noted in subclavian and cephalic vessels. The left cephalic vein chantell ses and shows flow as well as the radial and ulnar veins. IMPRESSION: 1. Findings are suggestive of acute deep venous thrombosis within the left axillary vein and left bas ilic vein.
[2021-03-01 12:20] VITALS: BP 110/67; PULSE 56
[2021-03-01] MEDS ORDERED: APIXABAN 5 MG TAB PO STA (12:28)
--- NOTE | 2021-03-01 13:38 | IR ---
EXAMINATION TYPE: IR angio upper extremity LT, IR cvc insert >=5 years DATE OF EXAM: 03/01/2021 COMPARISON: NONE CLINICAL HISTORY: Status post bariatric surgery with complication Needs long-term intravenous access for parenteral nutrition. PROCEDURE: Hand hygiene obtained with soap and water and alcohol-based hand rub. After informed consent, the skin overlying the left basilic vein was localized with ultrasound and no vonnie to be compressible and patent. An ultrasound image was obtained and submitted on the patient's c aburto. The overlying skin was prepped and draped and Lidocaine was used for local anesthesia. A skin serena was made with a scalpel. Access was gained to the vein under ultrasound guidance with a 21 gau ge needle and a 0.018 inch wire was advanced and could not be advanced centrally, dilator was advance d over the wire and subsequently gentle hand-injection of contrast material was performed and images obtained. Based on the findings attention was then directed to the right upper extremity, the dilator was removed, hemostasis achieved on the left. Using similar technique the right basilic vein was ev aluated, the vein was noted to be compressible and patent by ultrasound. Access site was dilated with Peel-Away sheath and catheter tailored to the appropriate length and advanced such that the distal t ip is at the cavoatrial junction. Spot image was obtained verifying placement. Catheter was fixed t o the skin and a sterile dressing was placed following hemostasis. Catheter was aspirated and flushe d with saline. Patient was discharged in stable condition without complication. Maximal barrier tech nique is utilized. Ultrasound image is documented on the chart. Ultrasound used with sterile techniq ue. Findings: Casting is noted in the left axillary vein consistent with underlying thrombus Fluoro time and fluoroscopic images submitted to document procedure: 35 intraoperative images documen t the procedure, 142 images document the mid left upper extremity angiogram, 2.1 minutes fluoroscopy time IMPRESSION: STATUS POST ULTRASOUND AND FLUOROSCOPIC GUIDED PICC LINE PLACEMENT, READY FOR USE. THIS PROCEDURE WAS PERFORMED BY THE UNDERSIGNED. Left axillary vein thrombosis, deep venous thrombosis, re port relayed to the referring clinician at the time of performance of the exam in the EC.
== END 2021-03-01 12:45 | disposition home or self-care (01) ==
LOC: CATHCVL 09:01
DX: I82.622 Acute embolism and thrombosis of deep veins of left upper extremity (principal); Z45.2 Encounter for adjustment and management of vascular access device; E11.9 Type 2 diabetes mellitus without complications; E78.5 Hyperlipidemia, unspecified; I10 Essential (primary) hypertension; F41.9 Anxiety disorder, unspecified; M19.90 Unspecified osteoarthritis, unspecified site; Z79.84 Long term (current) use of oral hypoglycemic drugs; Z87.891 Personal history of nicotine dependence; Z98.84 Bariatric surgery status
CPT/HCPCS: 36556; 36573; 75820; 99284

== ENCOUNTER → 2023-01-08 | Outpatient (CLI) | payer BC, MEDICARE ==
[2023-01-08 10:02] VITALS: BP 142/80; PULSE 62; RESP 18; TEMP 98.4
--- NOTE | 2023-01-08 14:44 | P.PAINPG ---
PQRS Measure Charge Sheet Comment: A 62 yr old male with a history of severe and chronic LBP x 6 yrs secondary to lumbar DDD and spondylosis with facet arthropathy without myelopathy presents today for LBP. Pain level is provoked at 8 /10 in intensity, constant, localized in the lumbar spine, dull/ achy in character w shooting towards the R hip. Pain is provoked by sitting, standing, walking for periods of 15 min or more. Pain is alleviated with heat, ice, medications, use of a cane for ambulatory assistance, reclining, laying on his L side and rest. Interventional pain procedures completed include BL erector spinae (2020) Patient is currently on Ibu, Tyl Patient denies any side effects of the medication(s), denies excessive drowsin ess or sleepiness, denies suicidal ideation and reports that the current pain medication is helping to control the pain and improve activities of daily living. Patient denies any motor or sensory deficits. Patient denies any fever or night sweats, denies any change in the bowel movements or urination. Physical Examination: -Constitutional: Cooperative. Not in acute distress . - Neurologic: Cranial nerve II to XII intact. No focal neurological deficits. - Psychatric: Alert & oriented x 3. Matching mood & appropriate affect. Judgment and insight intact. - Musculoskeletal: Cervical spine: Muscle bulk/ tone/ strength in the bilateral upper extremities normal Vertebral body tenderness to palpation over Spurling test positive Distraction test positive Facet loading test positive TTP Thoracic spine Muscle bulk / tone/ strength in the bilateral paraspinal muscles normal Vertebral body tender to palpation over Facet loading test positive TTP Lumbar spine: Motor bulk/ tone/ strength lower extremities , thigh and legs : 5/5 Deep tendon reflexes : Normal Knee Jerk. Normal Ankle Jerk . Vertebral body tenderness to palpation over Lumbar Facet Loading Test positive Straight Leg Raise: positive at 30 degrees right side/ left side Gaenslen's Test positive Sacral spine : Severe tenderness over the Sacroiliac joint: right side / left side Range of motion: Flexion of the lumbar spine <60 degrees Range of motion: Extension of the lumbar spine <20 degrees Gaenslen's Test positive right side / left side Roberta test: positive right side / left side Thigh Thrust Test positive right side / left side Sacral Thrust Test positive right side / left side Imaging: CT without contrast of the lumbar spine from 12/19/22 reviewed Assessment and plan: Chronic LBP secondary to lumbar DDD, spondylosis with facet arthropathy without myelopathy Recommendation of PT x 6 wks re: M51.36. May return to this clinic within 6 wks for a re evaluation. All questions answered. I have spent less than 30 minutes on patient care today. Dr Barba was available by phone for the evaluation of this patient. The time was used to review the medical records including relevant urine studies and Prescription history (MAPs), review of the available imaging, evaluation and examination of the patient, coordination of care with the medical staff and if applicable referring physicians, as well as creation of the medical record PQRS Narrative: Smoking Status Current every day smoker Hx Alcohol Use (MH) Yes: occ Home Medications: Ambulatory Orders Furosemide [Lasix] 40 mg PO DAILY 05/02/16 Potassium Chloride [Klor-Con 20] 20 meq PO DAILY 05/02/16 amLODIPine BESYLATE [Norvasc] 10 mg PO DAILY 05/02/16 lisinopriL [Zestril] 20 mg PO BID 05/02/16 metFORMIN HCL [Glucophage] 250 mg PO DAILY 05/02/16 Atorvastatin [Lipitor] 20 mg PO HS 10/17/20 Cyclobenzaprine [Flexeril] 5 mg PO TID PRN 10/17/20 Tamsulosin [Flomax] 0.4 mg PO DAILY 10/17/20 traMADol HCL [Ultram] 50 mg PO DAILY PRN 10/17/20 Dulaglutide [Trulicity] 1.5 mg SQ OSPINA 11/20/20 Calcium Citrate 250 mg PO DAILY 12/10/20 HYDROcodone/APAP [Camak Elixir 7.5-325Mg/15Ml] 15 ml PO Q4HR PRN 3 Days #270 ml 12/27/20 Omeprazole [PriLOSEC] 40 mg PO DAILY #30 capsule. 12/27/20 Ondansetron Odt [Zofran Odt] 4 mg PO Q8HR PRN #9 tab 12/27/20 Simethicone 40 mg/0.6 ml Drops [Mylicon Drops] 40 mg PO PCHS PRN #30 ml 12/27/20 bisacodyL [Dulcolax] 5 mg PO DAILY PRN #10 tablet. 12/27/20 Levofloxacin [Levaquin] 500 mg PO DAILY 12/31/20 Sertraline [Zoloft] 100 mg PO DAILY 01/01/21 Tolterodine Tartrate [Detrol LA] 4 mg PO DAILY 01/01/21 atenoloL [Tenormin] 100 mg PO BID 01/01/21 Apixaban [Eliquis Starter Pack (for VTE)] 0 mg PO DIRECTED 30 Days #1 pack 03/01/21 Controlled Substance Measures - Controlled Substance Measures Is patient prescribed a controlled substance at discharge?: No
== END ==
LOC: PNWHC3 09:12
PROVIDERS: ATTEND Specialist
DX: M51.36 Other intervertebral disc degeneration, lumbar region (principal); M47.816 Spondylosis without myelopathy or radiculopathy, lumbar region; G89.29 Other chronic pain; F17.200 Nicotine dependence, unspecified, uncomplicated; Z88.8 Allergy status to other drugs, medicaments and biological substances; Z79.899 Other long term (current) drug therapy; M51.26 Other intervertebral disc displacement, lumbar region
CPT/HCPCS: 99211